=== PATIENT | female | born 1955 | race Caucasian/White ===

== ENCOUNTER 2022-03-12 08:56 | Outpatient (CLI) | payer OTHER, SELFPAY ==
[2022-03-12 11:04] LABS: Creatinine Urine 148.5 mg/dL
[2022-03-12 11:07] LABS: Microalbumin Creatinine Ratio 20 mg/g (0-30); Microalbumin Urine 3 mg/dL
[2022-03-12 11:13] LABS: Albumin* 4.2 g/dL (3.3-5.0); Chloride* 101 mmol/L (96-114); Iron* 79 ug/dL (37-170); Sodium* 138 mmol/L (135-149)
[2022-03-12 11:14] LABS: Potassium* 4.6 mmol/L (3.6-5.1)
[2022-03-12 11:16] LABS: Blood Urea Nitrogen* 23 mg/dL (7-30); Carbon Dioxide* 28 mmol/L (20-32); Creatinine* 1.5 mg/dL (0.5-1.5); Estimated Glomerular Filt Rate 38 ml/min
[2022-03-12 11:17] LABS: Calcium* 9.3 mg/dL (8.4-10.6); Glucose* 160 mg/dL (60-115); Phosphorus* 4.3 mg/dL (2.5-4.5); Uric Acid* 7.2 mg/dL (2.2-8.4)
[2022-03-12 11:22] LABS: Percent Iron Saturation 25 % (20-50); Total Iron Binding Capacity 313 ug/dL (265-497)
[2022-03-12 11:48] LABS: Ferritin* 20.2 ng/mL (11.1-264.0)
== END 2022-03-12 08:57 | disposition home or self-care (01) ==
PROVIDERS: PCP Family Medicine; Visit Provider Internal Medicine Nephrology
DX: E11.22 Type 2 diabetes mellitus with diabetic chronic kidney disease (principal); I12.9 Hypertensive chronic kidney disease with stage 1 through stage 4 chronic kidney disease, or unspecified chronic kidney disease
CPT/HCPCS: 80069; 82043; 82310; 82570; 82728; 83540; 83550; 83970; 84550; 87086; 87186

== ENCOUNTER 2022-09-05 07:25 | Outpatient (CLI) | payer OTHER, SELFPAY | END 2022-09-05 07:26 | disposition home or self-care (01) | LOC: NFLDREF 09-12 12:27 | PROVIDERS: PCP Physician Assistant Medical; Referring Provider Physician Assistant Medical; Visit Provider Internal Medicine Nephrology | DX: N18.9 Chronic kidney disease, unspecified (principal); E11.9 Type 2 diabetes mellitus without complications; I10 Essential (primary) hypertension; E78.5 Hyperlipidemia, unspecified | CPT/HCPCS: 80069; 82043; 82310; 82570; 82728; 83540; 83550; 83970; 84550; 87086; 87186 ==

== ENCOUNTER 2023-01-18 15:06 | Inpatient (IN) | payer MEDICARE, SELFPAY ==
[2023-01-18] VITALS (43 sets, daily range): BP systolic 94–158; BP diastolic 66–127; PULSE 71–136; RESP 16–20; TEMP 36.3–36.4; O2SAT 89–100; BMI 37.4; BMI 44.8
--- NOTE | 2023-01-18 15:11 | CRLHL7_ITS ---
For Patients: As a result of the Cures Act, medical imaging exams and procedure reports are released immediately into your electronic medical record. You may view this report before your referring provider. If you have questions, please contact your health care provider. INDICATION: Status post fall with pain. COMPARISON: None available. FINDINGS: The left hip was examined with AP and frogleg lateral views. An AP view of the pelvis is obtained for a total of three views. The components of bilateral total hip prostheses are in anatomic alignment with no sign of fracture, loosening, or dislocation. There is no sign of fracture of the apache osseous structures. There is mild sclerosis of the right sacroiliac joint from mild primary osteoarthritis. The left sacroiliac joint and pubic symphysis are normal in appearance. The rest of the bony pelvis and soft tissues are normal in appearance. IMPRESSION: No sign of acute osseous injury. Satisfactory appearance of bilateral total hip prostheses. 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 Dictated by Yohan Gruber MD @ 01/18/2023 5:23:28 PM (Electronically Signed)
--- NOTE | 2023-01-18 15:11 | CRLHL7_ITS ---
For Patients: As a result of the Cures Act, medical imaging exams and procedure reports are released immediately into your electronic medical record. You may view this report before your referring provider. If you have questions, please contact your health care provider. INDICATION: Fall, left shoulder pain TECHNIQUE: None. COMPARISON: X-ray left shoulder, three views FINDINGS: Moderate degenerative changes of the glenohumeral and acromioclavicular joints. Negative for acute fracture or dislocation. Overlying soft tissues unremarkable. Visualized portion of the lung is clear. IMPRESSION: Negative for acute fracture. Dictated by Josephine Welsh MD @ 01/18/2023 5:20:21 PM Dictated by: Josephine Welsh MD @ 01/18/2023 17:20:38 (Electronically Signed)
--- NOTE | 2023-01-18 15:11 | CRLHL7_ITS ---
For Patients: As a result of the Cures Act, medical imaging exams and procedure reports are released immediately into your electronic medical record. You may view this report before your referring provider. If you have questions, please contact your health care provider. INDICATION: Elbow pain after fall. COMPARISON: None available. FINDINGS: The left elbow is examined with AP, lateral, and oblique views. There is no sign of fracture, dislocation, or joint effusion. The soft tissues are normal in appearance without sign of radio-opaque foreign body. No degenerative disease is seen. IMPRESSION: Normal left elbow. Dictated by Yohan Gruber MD @ 01/18/2023 5:24:21 PM (Electronically Signed)
--- NOTE | 2023-01-18 15:11 | CRLHL7_ITS ---
For Patients: As a result of the Cures Act, medical imaging exams and procedure reports are released immediately into your electronic medical record. You may view this report before your referring provider. If you have questions, please contact your health care provider. INDICATION: Fall, pain INDICATION: Pain after fall. TECHNIQUE: Left knee, three views. COMPARISON: None FINDINGS: Bones: Alignment is normal. No fractures or bone lesions. Joint spaces: Degenerative arthrosis, primarily at the patellofemoral joint and medial compartment. Soft tissues: Unremarkable. IMPRESSION: There is no acute fracture or malalignment. Dictated by Salazar Rico MD @ 01/18/2023 5:16:58 PM Dictated by: Salazar Rico MD @ 01/18/2023 17:17:03 (Electronically Signed)
--- NOTE | 2023-01-18 15:11 | CRLHL7_ITS ---
For Patients: As a result of the Century Cures Act, medical imaging exams and procedure reports are released immediately into your electronic medical record. You may view this report before your referring provider. If you have questions, please contact your health care provider. Indication Fall. TECHNIQUE: Noncontrast CT images acquired through the brain. COMPARISON: None. FINDINGS: Motion artifact degrades image quality. Mild diffuse cerebral volume loss. No mass effect or midline shift. The hinton-white differentiation is maintained. No acute intracranial hemorrhage or pathologic extra-axial fluid collection. Patchy hypoattenuation in the supratentorial white matter, suggestive of mild chronic microvascular ischemic changes. Intracranial atherosclerotic calcifications. Left parietal subgaleal hematoma. No calvarial fracture. Hyperostosis frontalis interna. The paranasal sinuses and mastoid air cells are clear. IMPRESSION: 1. No acute intracranial hemorrhage or mass effect. 2. Left parietal subgaleal hematoma. No calvarial fracture. Please note that all CT scans at this facility use dose modulation, iterative reconstruction, and/or weight-based dosing when appropriate to reduce radiation dose to as low as reasonably achievable. Dictated by Zaid Lofton MD @ 01/18/2023 4:31:35 PM (Electronically Signed)
--- NOTE | 2023-01-18 15:11 | CRLHL7_ITS ---
For Patients: As a result of the Century Cures Act, medical imaging exams and procedure reports are released immediately into your electronic medical record. You may view this report before your referring provider. If you have questions, please contact your health care provider. INDICATION: Fall. TECHNIQUE: Noncontrast CT images acquired through the cervical spine. COMPARISON: None. FINDINGS: The cervical lordosis is maintained. Mild rightward cervical curvature. Vertebral body heights preserved. No acute fracture or traumatic subluxation. Degenerative changes of the atlantodental articulation. Mild retrolisthesis of C5 on C6 and C6 on C7. Multilevel posterior disc osteophyte complexes contribute up to moderate spinal canal narrowing at C2-3 and C5-6. Multilevel uncinate spurring and facet arthropathy contributing up to moderately severe neural foraminal stenosis on the right at C5-6 and left at C6-7. Mixed attenuation lesion expanding the left thyroid lobe measuring at least 2.1 cm. IMPRESSION: 1. No acute fracture or traumatic subluxation. 2. Multilevel cervical spondylosis. 3. Mixed attenuation lesion expanding the left thyroid lobe. Thyroid ultrasound would be recommended for further evaluation on a nonemergent basis. Please note that all CT scans at this facility use dose modulation, iterative reconstruction, and/or weight-based dosing when appropriate to reduce radiation dose to as low as reasonably achievable. Dictated by Zaid Lofton MD @ 01/18/2023 4:37:14 PM (Electronically Signed)
[2023-01-18] MEDS: MORPHINE 4 MG/ML INJ IVP (16:00)
--- NOTE | 2023-01-18 16:04 | ED.NURSE ---
Per imaging dept, Pt unable to hold still d/t pain on imaging table. MD informed. Received order for morphine 4mg IVP. #20G IV established in R AC, blood word drawn and sent to lab. Med given as ordered.
[2023-01-18 16:07] LABS: Basophils Absolute Auto 0.03 K/uL (0.00-0.30); Basophils Percent Auto 0.4 % (0.0-3.0); Eosinophils Absolute Auto 0.16 K/uL (0.00-0.50); Eosinophils Percent Auto 1.9 % (0.0-7.0); Hematocrit 36.7 % (33.0-51.0); Hemoglobin* 11.7 gm/dL (12.0-16.0); Immature Granulocytes Abs Auto 0.06 K/uL (0.00-0.30); Immature Granulocytes Pct Auto 0.7 %; Lymphocytes Percent Auto 18.8 % (20-44); Mean Corpuscular HGB Conc 32 gm/dL (32-36); Mean Corpuscular Hemoglobin 29 pg (26-34); Mean Corpuscular Volume 91 fL (80-100); Neutrophils Percent Auto 71.2 % (42.0-72.0); Platelet Count* 302 K/uL (140-440); RDW Coefficient of Variation % 13.7 % (11.5-15.5); Red Blood Count 4.02 m/uL (4.00-5.20); White Blood Count* 8.56 K/uL (4.50-11.00)
[2023-01-18 16:19] LABS: Slide Review Reflex No
[2023-01-18 16:21] LABS: Albumin* 4.3 g/dL (3.3-5.0); Chloride* 98 mmol/L (96-114); Potassium* 4.2 mmol/L (3.6-5.1); Sodium* 137 mmol/L (135-149)
[2023-01-18 16:24] LABS: Alanine Aminotransferase* 20 U/L (4-35); Alkaline Phosphatase* 73 U/L (40-150); Aspartate Amino Transferase* 24 U/L (12-35); Bilirubin Total* 0.5 mg/dL (0.1-1.5); Blood Urea Nitrogen* 22 mg/dL (7-30); Carbon Dioxide* 29 mmol/L (20-32); Creatinine* 1.3 mg/dL (0.5-1.5); Est. Creatinine Clearance* 38.77; Estimated Glomerular Filt Rate 45 ml/min; Glucose* 208 mg/dL (60-115); Total Protein* 7.9 g/dL (6.0-8.3)
[2023-01-18 16:25] LABS: Calcium* 9.3 mg/dL (8.4-10.6)
--- NOTE | 2023-01-18 16:27 | ED_ITS ---
HPI - General Adult General Chief complaint: Fall/Minor Trauma Stated complaint: Fall Time Seen by Provider: 01/18/23 15:06 Source: patient Mode of arrival: EMS Limitations: no limitations History of Present Illness HPI narrative: Patient is a 67-year-old female with a history of diabetes, chronic kidney disease, hypertension presenting to the emergency department after a fall. She states while she was going to characterize she slipped on the step falling to the ground. She is not sure if she lost consciousness. She does state duration she thinks she might have his recurrence she is adamant she went outside to the garage around 11:00 and is only held there for about an hour but over 3 hours had passed. She was calling out to her but she states he was in the room on the left side of the halls and was unable to hear her initially when she was calling out for him. She states she was requiring his help to get up after this fall. States he has issues able to get up on her own but she she was having his shoulder and knee pain from the fall. She is not sure if she hit her head. She is not on any blood thinners. Denies numbness, weakness, headache, vision changes, chest pain, shortness of breath, abdominal pain. Related Data Home Medications Medication Instructions Recorded Confirmed acetaminophen 500 mg tablet 500 mg PO PRN 02/19/22 09/10/22 atorvastatin 20 mg tablet 20 mg PO .Bedtime 02/19/22 09/10/22 cholecalciferol (vitamin D3) 25 1,000 unit PO QDAY 02/19/22 09/10/22 mcg (1,000 unit) capsule gabapentin 300 mg capsule 300 mg PO BID 02/19/22 09/10/22 lisinopril 20 mg tablet 20 mg PO DAILY 02/19/22 09/10/22 metformin 500 mg tablet,extended 1,000 mg PO 02/19/22 09/10/22 release 24 hr naproxen 500 mg tablet 500 mg PO BID 02/19/22 09/10/22 aspirin 81 mg tablet,delayed 81 mg PO DAILY PRN 09/10/22 09/10/22 release Previous Rx's Medication Instructions Recorded ofloxacin 0.3 % eye drops See Rx Instructions ophthalmic 06/18/22 (eye) .COMPLEX #5 mL Allergies Allergy/AdvReac Type Severity Reaction Status Date / Time fexofenadine AdvReac Intermediate Headache Verified 09/10/22 08:33 loratadine AdvReac Intermediate Headache Verified 09/10/22 08:33 Sulfa (Sulfonamide AdvReac Gastrointestinal Verified 01/16/23 15:20 Antibiotics) Upset Review of Systems Status of ROS: Reports: 10 or more systems reviewed and unremarkable except as noted in History and below PFSH PFSH Medical History (Updated 01/18/23 @ 22:03 by Zachery Magana DO) Anemia in chronic kidney disease (CKD) ?N18.9 - Chronic kidney disease, unspecified (ICD-10) ?D63.1 - Anemia in chronic kidney disease (ICD-10) Hyperparathyroidism, secondary renal ?N25.81 - Secondary hyperparathyroidism of renal origin (ICD-10) Obesity (BMI 30-39.9) ?E66.9 - Obesity, unspecified (ICD-10) Thumb pain ?M79.646 - Pain in unspecified finger(s) (ICD-10) Conjunctivitis ?H10.9 - Unspecified conjunctivitis (ICD-10) Bronchitis ?J40 - Bronchitis, not specified as acute or chronic (ICD-10) Osteoarthritis ?M19.90 - Unspecified osteoarthritis, unspecified site (ICD-10) Hypertension ?I10 - Essential (primary) hypertension (ICD-10) Hyperlipidemia ?E78.5 - Hyperlipidemia, unspecified (ICD-10) Diabetic polyneuropathy ?E11.42 - Type 2 diabetes mellitus with diabetic polyneuropathy (ICD-10) Diabetes mellitus ?E11.9 - Type 2 diabetes mellitus without complications (ICD-10) Chronic right shoulder pain ?M25.511 - Pain in right shoulder (ICD-10) ?G89.29 - Other chronic pain (ICD-10) Chronic kidney disease ?N18.9 - Chronic kidney disease, unspecified (ICD-10) Chronic back pain ?M54.9 - Dorsalgia, unspecified (ICD-10) ?G89.29 - Other chronic pain (ICD-10) Surgical History (Updated 01/18/23 @ 21:54 by Anthony Garcia MD) History of thumb surgery ?Z98.890 - Other specified postprocedural states (ICD-10) 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) ?Z98.890 - Other specified postprocedural states (ICD-10) History of total right hip replacement (2004) ?Z96.641 - Presence of right artificial hip joint (ICD-10) History of total left hip replacement (2002) ?Z96.642 - Presence of left artificial hip joint (ICD-10) History of shoulder surgery (2008) ?Z98.890 - Other specified postprocedural states (ICD-10) History of pituitary surgery (~1995) ?Z98.890 - Other specified postprocedural states (ICD-10) History of hysterectomy ?Z90.710 - Acquired absence of both cervix and uterus (ICD-10) Family History (Updated 02/18/22 @ 11:44 by Anastasia Coleman) Mother Breast cancer Maternal Grandmother Diabetes Social History (Updated 02/18/22 @ 11:44 by Anastasia Coleman) Narrative: Does not drink alcohol Does not use illicit drugs Nonsmoker Smoking Status: Former smoker How often do you have a drink containing alcohol: never AUDIT-C Alcohol total score: 0 Non-prescribed substance use: denies use Exam Narrative: Exam Narrative: Const: Well-nourished, Well-developed, in mild distress Eyes: PERRL, no conjunctival injection, and symmetrical lids ENMT: Atraumatic external nose and ears. Moist mucous membranes. Neck: Symmetric, trachea midline, No thyromegaly. CVS: RRR, No murmurs or gallops. Peripheral pulses 2+ and equal in all extremities RESP: Unlabored respiratory effort. Clear to auscultation bilaterally. GI: Nontender/Nondistended, No rebound or guarding. MSK:Extremities w/o deformity, pain to palpation noted left shoulder, elbow, hip, and knee. No midline spinal tenderness Skin: Warm, Dry. No rashes or lesions. Neuro: Normal Muscle tone, No focal neurological deficits. Psych: Awake, Alert, & Oriented x3. Appropriate mood and affect. Const: Vital Signs, click to edit/add: Vital Signs - 24 hr 01/18/23 15:10 01/18/23 15:10 01/18/23 15:18 Temperature 97.3 F L Pulse Rate 82 Pulse Rate [Pulse Oximeter] 76 Respiratory Rate 16 18 Blood Pressure 157/88 H Blood Pressure [Ri ght Upper Arm] 157/88 H Pulse Oximetry 98 98 97 Oxygen Delivery Me thod Room Air 01/18/23 15:22 01/18/23 15:32 01/18/23 15:33 Temperature Pulse Rate 71 82 85 Pulse Rate [Pulse Oximeter] Respiratory Rate 20 16 18 Blood Pressure 140/105 H 157/109 H Blood Pressure [Ri ght Upper Arm] Pulse Oximetry 98 96 94 Oxygen Delivery Me thod 01/18/23 16:33 01/18/23 16:45 01/18/23 16:52 Temperature Pulse Rate 128 H 130 H 131 H Pulse Rate [Pulse Oximeter] Respiratory Rate 20 20 18 Blood Pressure 129/108 H Blood Pressure [Ri ght Upper Arm] Pulse Oximetry 95 94 100 Oxygen Delivery Me thod 01/18/23 17:01 01/18/23 17:11 01/18/23 17:22 Temperature Pulse Rate 131 H 131 H 131 H Pulse Rate [Pulse Oximeter] Respiratory Rate 18 20 18 Blood Pressure 130/97 H 138/102 H 151/99 H Blood Pressure [Ri ght Upper Arm] Pulse Oximetry 99 94 96 Oxygen Delivery Me thod 01/18/23 17:31 01/18/23 17:32 01/18/23 17:43 Temperature Pulse Rate 135 H 133 H 133 H Pulse Rate [Pulse Oximeter] Respiratory Rate 16 18 Blood Pressure 110/98 H 120/101 H Blood Pressure [Ri ght Upper Arm] Pulse Oximetry 95 95 95 Oxygen Delivery Me thod 01/18/23 17:53 01/18/23 18:00 01/18/23 18:01 Temperature Pulse Rate 134 H 131 H 132 H Pulse Rate [Pulse Oximeter] Respiratory Rate 16 Blood Pressure 158/95 H 157/108 H Blood Pressure [Ri ght Upper Arm] Pulse Oximetry 95 95 95 Oxygen Delivery Me thod 01/18/23 18:11 01/18/23 18:21 01/18/23 18:35 Temperature Pulse Rate 134 H 133 H 126 H Pulse Rate [Pulse Oximeter] Respiratory Rate Blood Pressure 145/127 H 144/104 H Blood Pressure [Ri ght Upper Arm] Pulse Oximetry 96 97 95 Oxygen Delivery Me thod 01/18/23 18:36 01/18/23 18:41 01/18/23 18:45 Temperature Pulse Rate 124 H 113 H 120 H Pulse Rate [Pulse Oximeter] Respiratory Rate Blood Pressure 139/99 H 103/85 Blood Pressure [Ri ght Upper Arm] Pulse Oximetry 97 96 96 Oxygen Delivery Me thod 01/18/23 18:51 01/18/23 18:52 01/18/23 19:01 Temperature Pulse Rate 113 H 102 H 121 H Pulse Rate [Pulse Oximeter] Respiratory Rate Blood Pressure 102/89 94/68 Blood Pressure [Ri ght Upper Arm] Pulse Oximetry 95 96 Oxygen Delivery Me thod 01/18/23 19:13 01/18/23 19:31 01/18/23 20:01 Temperature Pulse Rate 126 H 128 H 121 H Pulse Rate [Pulse Oximeter] Respiratory Rate Blood Pressure 104/83 114/81 109/66 Blood Pressure [Ri ght Upper Arm] Pulse Oximetry Oxygen Delivery Me thod 01/18/23 20:41 01/18/23 20:45 01/18/23 20:49 Temperature Pulse Rate 120 H 127 H 116 H Pulse Rate [Pulse Oximeter] Respiratory Rate Blood Pressure 126/101 H Blood Pressure [Ri ght Upper Arm] Pulse Oximetry 95 93 94 Oxygen Delivery Me thod 01/18/23 21:00 01/18/23 21:02 01/18/23 21:15 Temperature Pulse Rate 118 H 136 H Pulse Rate [Pulse Oximeter] Respiratory Rate Blood Pressure 139/77 Blood Pressure [Ri ght Upper Arm] Pulse Oximetry 99 89 Oxygen Delivery Me thod 01/18/23 21:30 01/18/23 21:32 01/18/23 21:45 Temperature Pulse Rate 118 H 120 H Pulse Rate [Pulse Oximeter] Respiratory Rate Blood Pressure 103/83 Blood Pressure [Ri ght Upper Arm] Pulse Oximetry 96 95 Oxygen Delivery Me thod 01/18/23 22:01 01/18/23 22:03 01/18/23 22:15 Temperature Pulse Rate 108 H 120 H Pulse Rate [Pulse Oximeter] Respiratory Rate Blood Pressure 107/66 Blood Pressure [Ri ght Upper Arm] Pulse Oximetry 92 91 Oxygen Delivery Me thod 01/18/23 22:23 Temperature Pulse Rate Pulse Rate [Pulse Oximeter] 125 H Respiratory Rate 20 Blood Pressure Blood Pressure [Ri ght Upper Arm] 107/66 Pulse Oximetry Oxygen Delivery Me thod Course Vital Signs Vital signs: Initial Vital Signs Temperature 97.3 F L 01/18/23 15:10 Temperature Source Temporal Artery Scan 01/18/23 15:10 Pulse Rate 76 01/18/23 15:10 Pulse Rhythm Regular 01/18/23 15:10 Respiratory Rate 16 01/18/23 15:10 Blood Pressure 157/88 H 01/18/23 15:10 Blood Pressure Mean 111 H 01/18/23 15:10 Blood Pressure Position Supine 01/18/23 15:10 Pulse Oximetry 98 01/18/23 15:10 Oxygen Delivery Method Room Air 01/18/23 15:10 Vital Signs Temperature 97.3 F L 01/18/23 15:10 Pulse Rate 76 01/18/23 15:10 Respiratory Rate 16 01/18/23 15:10 Blood Pressure 157/88 H 01/18/23 15:10 Pulse Oximetry 98 01/18/23 15:10 Oxygen Delivery Method Room Air 01/18/23 15:10 Temperature 97.3 F L 01/18/23 15:10 Pulse Rate 125 H 01/18/23 22:23 Respiratory Rate 20 01/18/23 22:23 Blood Pressure 107/66 01/18/23 22:23 Pulse Oximetry 91 01/18/23 22:15 Oxygen Delivery Method Room Air 01/18/23 15:10 Medical Decision Making [facility] Narrative Medical decision making narrative: Patient is 67-year-old female presenting emergency department after a fall at home. She slipped on the steps and fell. She is unsure if she had any loss of consciousness. She thought she was only on the ground for 1 hour but in reality was at least 3 hours. Her is in the room with her known states she is acting normally. She is complaining of pain to her left arm and leg. Saw having any neck pain. Denies having a headache. She is unsure if she hit her head. X-rays of the left knee, hip, elbow, shoulder are all ordered. Also CT scan of the head and cervical spine. Patient was given morphine for her pain. CBC and CMP were ordered along with a troponin. Patient's lab work returned showing no concerning abnormalities. Of the patient's imaging returned showing no concerning abnormalities. Before she went to CT scan she did receive her morphine. When she returned from CT scan her heart rate went from the 70s to 130s. Percy is clear why this occurred. We tried giving her 1 L of normal saline, Ativan, 2 doses of Lopressor. After this her blood pressure did come down but her heart rate is still tachycardic. Chest x-ray and urinalysis were ordered. Patient did have episodes where she looked like she was in SVT so we did try adenosine. Initial 6 mg tonight were going to try 12 mg. 12. Mg was given she did slow down from could see the patient is now in a flutter. Patient was started on a Cardizem drip. She was admitted to the hospitalist service Initial EKG showed sinus rhythm with premature atrial complexes, rate of 70 beats per minute, normal intervals, normal axis, no ST or T-wave abnormalities. This was done at 15:24. Repeat EKG showed sinus tachycardia at 132 beats per minute with nonspecific ST abnormalities. I do appear to see P waves and not believe this EKG at 17:45 was SVT. Lab Data Labs: Lab Results 01/18/23 01/18/23 Range/Units 16:00 18:50 WBC 8.56 (4.50-11.00) K/uL RBC 4.02 (4.00-5.20) m/uL Hgb 11.7 L (12.0-16.0) gm/dL Hct 36.7 (33.0-51.0) % MCV 91 (80-100) fL MCH 29 (26-34) pg MCHC 32 (32-36) gm/dL RDW Coeff of Brittni 13.7 (11.5-15.5) % Plt Count 302 (140-440) K/uL Neut % (Auto) 71.2 (42.0-72.0) % Lymph % (Auto) 18.8 L (20-44) % [place] % (Auto) 7.0 (0.0-11.0) % Eos % (Auto) 1.9 (0.0-7.0) % Baso % (Auto) 0.4 (0.0-3.0) % Neut # (Auto) 6.10 (1.7-7.0) K/uL Lymph # (Auto) 1.60 (0.90-2.90) K/uL [place] # (Auto) 0.60 (0.00-0.90) K/UL Eos # (Auto) 0.16 (0.00-0.50) K/uL Baso # (Auto) 0.03 (0.00-0.30) K/uL Abs Immat Gran (auto) 0.06 (0.00-0.30) K/uL Imm/Tot Granulo (auto) 0.7 % Sodium 137 (135-149) mmol/L Potassium 4.2 (3.6-5.1) mmol/L Chloride 98 (96-114) mmol/L Carbon Dioxide 29 (20-32) mmol/L BUN 22 (7-30) mg/dL Creatinine 1.3 (0.5-1.5) mg/dL Estimated Creat Clear 38.77 Estimated GFR 45 ml/min Glucose 208 H (60-115) mg/dL Calcium 9.3 (8.4-10.6) mg/dL Total Bilirubin 0.5 (0.1-1.5) mg/dL AST 24 (12-35) U/L ALT 20 (4-35) U/L Alkaline Phosphatase 73 (40-150) U/L Total Creatine Kinase 78 (41-117) U/L Troponin I < 0.01 L < 0.01 L (0.01-0.04) ng/mL Total Protein 7.9 (6.0-8.3) g/dL Albumin 4.3 (3.3-5.0) g/dL Lab Acknowledgement Test Added Discharge Plan Discharge Clinical Impression: Atrial flutter Qualifiers: Atrial flutter type: unspecified Qualified Code(s): I48.92 - Unspecified atrial flutter Closed head injury Qualifiers: Encounter type: initial encounter Qualified Code(s): S09.90XA - Unspecified injury of head, initial encounter Fall Qualifiers: Encounter type: initial encounter Qualified Code(s): W19.XXXA - Unspecified fall, initial encounter Patient Disposition: Admitted As Inpatient Condition: Stable
[2023-01-18 16:35] LABS: Creatine Kinase* 78 U/L (41-117)
[2023-01-18 16:41] LABS: Troponin I* < 0.01 ng/mL (0.01-0.04)
--- NOTE | 2023-01-18 16:55 | ED.NURSE ---
C-collar removed, okay with .
[2023-01-18] MEDS: METOPROLOL TARTRATE 1 MG/ML inj 5 MG IVP ×2 (18:23→18:54)
--- NOTE | 2023-01-18 18:38 | ED.NURSE ---
Metoprolol given as ordered for elevated HR. HR noted down to 110s-120s. Pt reports urinating the bed. Pt assisted to standing, wet pants and brief removed. Clean brief in place. Linens replaced. HOB positioned for comfort. Denies additional needs at this time. Call light within reach.
[2023-01-18] MEDS: LACTATED RINGERS 1000 ML 1,000 ML IV (19:25)
[2023-01-18] MEDS: LORazepam 0.5 MG TABLET PO (19:27)
[2023-01-18 19:35] LABS: Troponin I* < 0.01 ng/mL (0.01-0.04)
--- NOTE | 2023-01-18 20:15 | CRLHL7_ITS ---
For Patients: As a result of the Cures Act, medical imaging exams and procedure reports are released immediately into your electronic medical record. You may view this report before your referring provider. If you have questions, please contact your health care provider. INDICATION: Tachycardia TECHNIQUE: Chest 2 views. COMPARISON: None FINDINGS: The heart is normal in size. The pulmonary vasculature is within normal limits. The lungs are clear. Postsurgical changes of the right shoulder. Moderate multilevel degenerative changes of the spine. IMPRESSION: No acute process. Dictated by Josephine Welsh MD @ 01/18/2023 9:06:03 PM Dictated by: Josephine Welsh MD @ 01/18/2023 21:06:26 (Electronically Signed)
--- NOTE | 2023-01-18 20:27 | ED.NURSE ---
Report given to BENITEZ Hale.
[2023-01-18] MEDS: ADENOSINE 6 MG/2ML INJ IVP (20:58)
[2023-01-18] MEDS: ADENOSINE 6 MG/2ML INJ 12 MG IVP (21:03)
[2023-01-18] MEDS: dilTIAZem HCL 125 MG in 0.9 % SODIUM CHLORIDE 100 ml 100 ML IVPB (21:33)
--- NOTE | 2023-01-18 22:13 | ED.NURSE ---
Nurse to nurse report given to Davina MARQUIS. Patient going to CCU#3
--- NOTE | 2023-01-18 22:36 | P.IMHP_ITS ---
Hospitalist- H&P: HPI History of Present Illness Time Seen by Provider: 22:00 Date Seen: 01/18/23 Chief complaint: Fall; atrial flutter with RVR Narrative: Naty Live is a 67 year old woman who lives in a private residence with her and presented to the emergency department today after sustaining a fall at home. She was attempting to walk out of her home into the garage when she tripped over something in the portal. This was an unwitnessed fall. She does not believe she lost consciousness but is not certain. She believes she was laying on garage floor for 3 or possibly 4 hours. She was calling out to her in the house but he did not respond until 3-4 hours later. Notes residual pain on the left posterior aspect of her head, left shoulder pain, knee pain. Patient underwent multiple radiographic studies, including CT scan of the head, CT scan of the C-spine, left elbow x-ray, pelvis and hip x-rays, left knee x-ray, left shoulder x-ray, and chest x-ray. None of these studies demonstrated any acute fractures. CT of head demonstrated no intracranial bleed or other intracranial abnormalities, but did demonstrate a left parietal hematoma in the area of her head discomfort. Noteworthy is the fact that she is ordinarily not on any anticoagulants or anti thrombotic agents. When patient 1st arrived in the emergency department vital signs were stable. Noted to have normal sinus rhythm. When patient returned from x-ray studies, heart rate was suddenly 130-140 beats per minute. Patient was asymptomatic with this. She was presumed to have a sinus tachycardia based on initial assessment. She was treated with lorazepam without resolution, IV metoprolol without resolution. Subsequently I assessed the patient and determined that patient was likely not in normal sinus rhythm. We administered adenosine 6 mg IV and the heart rate slowed down briefly to 90 beats per minute and then once again was around 130 beats per minute. Subsequently we administered adenosine 12 mg IV and the heart rate slowed down sufficiently that we could see distinct saw tooth pattern flutter waves indicating underlying atrial flutter. Subsequently heart rate return to roughly 130 beats per minute. We determined to admit the patient to the hospital to address the atrial flutter with RVR and monitor her status post closed head injury. Patient agreeable. Review of Systems Status of ROS: Reports: 10 or more systems reviewed and unremarkable except as noted in History and below Narrative: Denies angina or anginal equivalent, syncope or near syncope, nausea or vomiting, palpitations or chest fluttering, cough or dyspnea, paroxysmal nocturnal dyspnea or orthopnea, diaphoresis, dependent edema. States blood sugars are generally well controlled at home. Does have diabetes. Does not take insulin. Takes metformin only. Ordinarily does have difficulty with her gait. Does not usually fall. Has not had any other falls in the last 3-6 months. Designates her , Scott Live, as her power of prosecuting attorney for health should that be required. Requests full resuscitation in the event of cardiopulmonary demise. [facility] Medical History (Updated 01/18/23 @ 23:16 by Anthony Garcia MD) Anemia in chronic kidney disease (CKD) ?N18.9 - Chronic kidney disease, unspecified (ICD-10) ?D63.1 - Anemia in chronic kidney disease (ICD-10) Hyperparathyroidism, secondary renal ?N25.81 - Secondary hyperparathyroidism of renal origin (ICD-10) Obesity (BMI 30-39.9) ?E66.9 - Obesity, unspecified (ICD-10) Thumb pain ?M79.646 - Pain in unspecified finger(s) (ICD-10) Conjunctivitis ?H10.9 - Unspecified conjunctivitis (ICD-10) Bronchitis ?J40 - Bronchitis, not specified as acute or chronic (ICD-10) Osteoarthritis ?M19.90 - Unspecified osteoarthritis, unspecified site (ICD-10) Hypertension ?I10 - Essential (primary) hypertension (ICD-10) Hyperlipidemia ?E78.5 - Hyperlipidemia, unspecified (ICD-10) Diabetic polyneuropathy ?E11.42 - Type 2 diabetes mellitus with diabetic polyneuropathy (ICD-10) Diabetes mellitus ?E11.9 - Type 2 diabetes mellitus without complications (ICD-10) Chronic right shoulder pain ?M25.511 - Pain in right shoulder (ICD-10) ?G89.29 - Other chronic pain (ICD-10) Chronic kidney disease ?N18.9 - Chronic kidney disease, unspecified (ICD-10) Chronic back pain ?M54.9 - Dorsalgia, unspecified (ICD-10) ?G89.29 - Other chronic pain (ICD-10) Surgical History History of thumb surgery ?Z98.890 - Other specified postprocedural states (ICD-10) 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) ?Z98.890 - Other specified postprocedural states (ICD-10) History of total right hip replacement (2004) ?Z96.641 - Presence of right artificial hip joint (ICD-10) History of total left hip replacement (2002) ?Z96.642 - Presence of left artificial hip joint (ICD-10) History of shoulder surgery (2008) ?Z98.890 - Other specified postprocedural states (ICD-10) History of pituitary surgery (~1995) ?Z98.890 - Other specified postprocedural states (ICD-10) History of hysterectomy ?Z90.710 - Acquired absence of both cervix and uterus (ICD-10) Family History Mother Breast cancer Maternal Grandmother Diabetes Social History Narrative: Does not drink alcohol Does not use illicit drugs Nonsmoker Smoking Status: Former smoker How often do you have a drink containing alcohol: never AUDIT-C Alcohol total score: 0 Non-prescribed substance use: denies use Meds Home Medications and Allergies Home Medications Medication Instructions Recorded Confirmed Type acetaminophen 500 mg tablet 500 mg PO PRN 02/19/22 09/10/22 History atorvastatin 20 mg tablet 20 mg PO .Bedtime 02/19/22 09/10/22 History cholecalciferol (vitamin D3) 25 1,000 unit PO QDAY 02/19/22 09/10/22 History mcg (1,000 unit) capsule gabapentin 300 mg capsule 300 mg PO BID 02/19/22 09/10/22 History lisinopril 20 mg tablet 20 mg PO DAILY 02/19/22 09/10/22 History metformin 500 mg tablet,extended 1,000 mg PO 02/19/22 09/10/22 History release 24 hr naproxen 500 mg tablet 500 mg PO BID 02/19/22 09/10/22 History aspirin 81 mg tablet,delayed 81 mg PO DAILY PRN 09/10/22 09/10/22 History release Allergies Allergy/AdvReac Type Severity Reaction Status Date / Time fexofenadine AdvReac Intermediate Headache Verified 09/10/22 08:33 loratadine AdvReac Intermediate Headache Verified 09/10/22 08:33 Sulfa (Sulfonamide AdvReac Gastrointestinal Verified 01/16/23 15:20 Antibiotics) Upset Exam Narrative: Exam Narrative: I examined the patient the emergency department. She appears comfortable and in no acute distress. Obese. Vision and hearing are grossly normal. Alert and oriented to self, place, time, situation. Articulate, cooperative. Mood and affect are congruent. Small hematoma left parietal region of scalp, moderately tender to touch. No lacerations. No abrasions. Normal external auditory canals and tympanic membranes. Midline nasal septum. Dentition in fair repair. Moist buccal mucosa. Pupils equally round and reactive to light and accommodation. Extraocular muscles are intact. No icterus. No conjunctival injection. Neck is supple. No JVD or hepatojugular reflux. No carotid bruits. No head and neck lymphadenopathy. Lungs are clear to auscultation. No wheezing, rhonchi, or rales. Chest wall excursions are full. No CVA tenderness or tenderness to palpation over the spine. Heart tones are tachycardic without murmur, gallop, or rub. PMI not laterally displaced. Abdomen with active bowel sounds, soft, nontender. No rebound or guarding. No organomegaly or masses. She has antalgia with attempted range of motion of both shoulders. Can move both elbows wrists and all fingers. Range of motion of hips, knees, ankles, toes are intact. Extremities without edema. Palpable pulses upper and lower extremities. Moves all 4 extremities. No focal motor neurologic deficits. Skin is dry and intact. Const: Vital Signs, click to edit/add: Vital Signs - 24 hr 01/18/23 15:10 01/18/23 15:10 01/18/23 15:18 Temperature 97.3 F L Pulse Rate 82 Pulse Rate [Pulse Oximeter] 76 Respiratory Rate 16 18 Blood Pressure 157/88 H Blood Pressure [Ri ght Upper Arm] 157/88 H Pulse Oximetry 98 98 97 Oxygen Delivery Me thod Room Air 01/18/23 15:22 01/18/23 15:32 01/18/23 15:33 Temperature Pulse Rate 71 82 85 Pulse Rate [Pulse Oximeter] Respiratory Rate 20 16 18 Blood Pressure 140/105 H 157/109 H Blood Pressure [Ri ght Upper Arm] Pulse Oximetry 98 96 94 Oxygen Delivery Me thod 01/18/23 16:33 01/18/23 16:45 01/18/23 16:52 Temperature Pulse Rate 128 H 130 H 131 H Pulse Rate [Pulse Oximeter] Respiratory Rate 20 20 18 Blood Pressure 129/108 H Blood Pressure [Ri ght Upper Arm] Pulse Oximetry 95 94 100 Oxygen Delivery Me thod 01/18/23 17:01 01/18/23 17:11 01/18/23 17:22 Temperature Pulse Rate 131 H 131 H 131 H Pulse Rate [Pulse Oximeter] Respiratory Rate 18 20 18 Blood Pressure 130/97 H 138/102 H 151/99 H Blood Pressure [Ri ght Upper Arm] Pulse Oximetry 99 94 96 Oxygen Delivery Me thod 01/18/23 17:31 01/18/23 17:32 01/18/23 17:43 Temperature Pulse Rate 135 H 133 H 133 H Pulse Rate [Pulse Oximeter] Respiratory Rate 16 18 Blood Pressure 110/98 H 120/101 H Blood Pressure [Ri ght Upper Arm] Pulse Oximetry 95 95 95 Oxygen Delivery Me thod 01/18/23 17:53 01/18/23 18:00 01/18/23 18:01 Temperature Pulse Rate 134 H 131 H 132 H Pulse Rate [Pulse Oximeter] Respiratory Rate 16 Blood Pressure 158/95 H 157/108 H Blood Pressure [Ri ght Upper Arm] Pulse Oximetry 95 95 95 Oxygen Delivery Me thod 01/18/23 18:11 01/18/23 18:21 01/18/23 18:35 Temperature Pulse Rate 134 H 133 H 126 H Pulse Rate [Pulse Oximeter] Respiratory Rate Blood Pressure 145/127 H 144/104 H Blood Pressure [Ri ght Upper Arm] Pulse Oximetry 96 97 95 Oxygen Delivery Me thod 01/18/23 18:36 01/18/23 18:41 01/18/23 18:45 Temperature Pulse Rate 124 H 113 H 120 H Pulse Rate [Pulse Oximeter] Respiratory Rate Blood Pressure 139/99 H 103/85 Blood Pressure [Ri ght Upper Arm] Pulse Oximetry 97 96 96 Oxygen Delivery Me thod 01/18/23 18:51 01/18/23 18:52 01/18/23 19:01 Temperature Pulse Rate 113 H 102 H 121 H Pulse Rate [Pulse Oximeter] Respiratory Rate Blood Pressure 102/89 94/68 Blood Pressure [Ri ght Upper Arm] Pulse Oximetry 95 96 Oxygen Delivery Me thod 01/18/23 19:13 01/18/23 19:31 01/18/23 20:01 Temperature Pulse Rate 126 H 128 H 121 H Pulse Rate [Pulse Oximeter] Respiratory Rate Blood Pressure 104/83 114/81 109/66 Blood Pressure [Ri ght Upper Arm] Pulse Oximetry Oxygen Delivery Sd thod 01/18/23 20:41 01/18/23 20:45 01/18/23 20:49 Temperature Pulse Rate 120 H 127 H 116 H Pulse Rate [Pulse Oximeter] Respiratory Rate Blood Pressure 126/101 H Blood Pressure [Ri ght Upper Arm] Pulse Oximetry 95 93 94 Oxygen Delivery Sd thod 01/18/23 21:00 01/18/23 21:02 01/18/23 21:15 Temperature Pulse Rate 118 H 136 H Pulse Rate [Pulse Oximeter] Respiratory Rate Blood Pressure 139/77 Blood Pressure [Ri ght Upper Arm] Pulse Oximetry 99 89 Oxygen Delivery Sd thod 01/18/23 21:30 01/18/23 21:32 01/18/23 21:45 Temperature Pulse Rate 118 H 120 H Pulse Rate [Pulse Oximeter] Respiratory Rate Blood Pressure 103/83 Blood Pressure [Ri ght Upper Arm] Pulse Oximetry 96 95 Oxygen Delivery Sd thod 01/18/23 22:01 01/18/23 22:03 01/18/23 22:15 Temperature Pulse Rate 108 H 120 H Pulse Rate [Pulse Oximeter] Respiratory Rate Blood Pressure 107/66 Blood Pressure [Ri ght Upper Arm] Pulse Oximetry 92 91 Oxygen Delivery [facility] 01/18/23 22:23 Temperature Pulse Rate Pulse Rate [Pulse Oximeter] 125 H Respiratory Rate 20 Blood Pressure Blood Pressure [Ri ght Upper Arm] 107/66 Pulse Oximetry Oxygen Delivery Me thod Documenting provider has reviewed patient's vital signs: yes Hospitalist - H&P: Result Labs Labs: Short CBC 01/18/23 Range/Units 16:00 WBC 8.56 (4.50-11.00) K/uL Hgb 11.7 L (12.0-16.0) gm/dL Hct 36.7 (33.0-51.0) % Plt Count 302 (140-440) K/uL BMP 01/18/23 16:00 Sodium 137 Potassium 4.2 Chloride 98 Carbon Dioxide 29 BUN 22 Creatinine 1.3 Glucose 208 H Calcium 9.3 Cardiac Enzymes 01/18/23 01/18/23 Range/Units 16:00 18:50 Total Creatine Kinase 78 (41-117) U/L Troponin I < 0.01 L < 0.01 L (0.01-0.04) ng/mL Liver Function 01/18/23 Range/Units 16:00 Total Bilirubin 0.5 (0.1-1.5) mg/dL AST 24 (12-35) U/L ALT 20 (4-35) U/L Alkaline Phosphatase 73 (40-150) U/L Albumin 4.3 (3.3-5.0) g/dL ECG Attestation: I personally reviewed and interpreted this ECG as follows: ECG interpretation date: 01/18/23 ECG interpretation time: 22:00 Prior ECG tracings: available for review Interpretation: Initial electrocardiogram demonstrates sinus rhythm. Subsequent electrocardiograms demonstrated tachycardia. Unclear if P waves marched out. P-wave configuration different than initial electrocardiogram. After administration of adenosine 12 mg IV, we captured flutter waves demonstrating underlying atrial flutter. Imaging CT scan - head: Attestation: I have reviewed the pertinent imaging results. Radiologist's impression: IMPRESSION: 1. No acute intracranial hemorrhage or mass effect. 2. Left parietal subgaleal hematoma. No calvarial fracture. CT scan-cervical spine: Attestation: I have reviewed the pertinent imaging results. Radiologist's impression: IMPRESSION: 1. No acute fracture or traumatic subluxation. 2. Multilevel cervical spondylosis. 3. Mixed attenuation lesion expanding the left thyroid lobe. Thyroid ultrasound would be recommended for further evaluation on a nonemergent basis. Chest x-ray: Attestation: I have reviewed the pertinent imaging results. Radiologist's impression: IMPRESSION: No acute process. [id number]: Attestation: I have reviewed the pertinent imaging results. Radiologist's impression: IMPRESSION: Negative for acute fracture. X-ray-left elbow: Attestation: I have reviewed the pertinent imaging results. Radiologist's impression: IMPRESSION: Normal left elbow. [id number] and hips: Attestation: I have reviewed the pertinent imaging results. Radiologist's impression: IMPRESSION: No sign of acute osseous injury. Satisfactory appearance of bilateral total hip prostheses. 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 X-ray-left knee: Attestation: I have reviewed the pertinent imaging results. Radiologist's impression: IMPRESSION: There is no acute fracture or malalignment. Assessment and Plan Assessment and plan (1) Atrial flutter: Problem comment: Sudden onset in the hospital, uncertain if new or paroxysmal Status: Acute (2) Closed head injury: Problem comment: Status post fall in home Status: Acute (3) Fall: Problem comment: Underlying unstable gait Status: Acute Plan 1. Reviewed impression with patient. Recommended admission to the hospital. She is agreeable. 2. Initiate efforts to attempt to rate control with IV diltiazem drip and intermittent metoprolol IV in an effort to try to maintain heart rate less than 100. 3. Consider adding amiodarone if calcium channel fatmata and beta-fatmata insufficient for rate control. Additionally consider DC cardioversion. May possibly require catheter ablation. 4. Initiate anticoagulation with enoxaparin 100 mg subcutaneously q.12 hours. 5. Telemetry. Serial troponin I measurements. Order transthoracic echocardiogram. 6. Physical therapy and occupational therapy consultation. 7. Continue with metformin for now. Monitor creatinine. Will add sliding scale insulin while in hospital. 8. Consider orthopedic surgery consultation if patient continues to have discomforts such as in her shoulders and elsewhere.
[2023-01-19] VITALS (12 sets, daily range): BP systolic 85–103; BP diastolic 52–67; PULSE 73–81; RESP 16–24; TEMP 36.4–36.8; O2SAT 93–96
[2023-01-19] MEDS: ACETAMINOPHEN 325 MG TABLET 650 MG PO (00:41)
[2023-01-19] MEDS: ENOXAPARIN 120 MG/0.8 ML INJ 100 MG SUBCUT (00:55)
[2023-01-19] MEDS: SODIUM CHLORIDE 0.9 % (FLUSH) 10 ML SYRINGE 5 ML IVF ×3 (05:00→21:16)
--- NOTE | 2023-01-19 06:36 | PC.NURSE ---
END OF SHIFT NOTE: PT PLEASANT AND COOPERATIVE. A&Ox3. DENIES CP, SOB, N/V. AMBULATES WITH WALKER, GB, A1-2. AFEBRILE. PT CONVERTED FROM AFIB/AFLUTTER TO NSR @0238. PAIN TO LEFT SHOULDER/ARM, HIP, KNEE THAT INCREASES WITH MOVEMENT. (PAIN D/T FALL AT HOME PRIOR TO ADMISSION.) BRUISE TO LEFT BUTTOCK. HEMATOMA TO BACK, LEFT SIDE OF HEAD;TENDER TO TOUCH. PT DENIES HEADACHE. LEFT ARM IS IN SLING. DILTIAZEM DRIP TITRATED FROM 5ML TO 15ML; UPON CONVERTING INTO NSR PT WAS WEENED OFF OF DRIP. BED ALARM ON AND CALL LIGHT WITHIN PT?S REACH.?
--- NOTE | 2023-01-19 06:41 | P.IMPN_ITS ---
Subjective Date Seen: 01/19/23 Interval history: Franklin [facility] Cover Note eHospitalist was contacted by nursing staff with concern of patient converted to sinus rhythm. Bedside nurse requesting addition of oral diltiazem. Bedside nurse instructed to wean patient off of diltiazem drip with follow-up BP. Follow-up BP was low with systolic blood pressure in the 90s range. Rounding provider to initiate oral diltiazem once blood pressure has improved. [facility] you [facility] This service is available for further assistance as requested by your care team by calling [phone]. Exam Const: Vital Signs, click to edit/add: Vital Signs - 24 hr 01/18/23 15:10 01/18/23 15:10 01/18/23 15:18 Temperature 97.3 F L Pulse Rate 82 Pulse Rate [Pulse Oximeter] 76 Respiratory Rate 16 18 Blood Pressure 157/88 H Blood Pressure [Le ft Arm] Blood Pressure [Ri ght Arm] Blood Pressure [Ri ght Upper Arm] 157/88 H Pulse Oximetry 98 98 97 Oxygen Delivery Me thod Room Air 01/18/23 15:22 01/18/23 15:32 01/18/23 15:33 Temperature Pulse Rate 71 82 85 Pulse Rate [Pulse Oximeter] Respiratory Rate 20 16 18 Blood Pressure 140/105 H 157/109 H Blood Pressure [Le ft Arm] Blood Pressure [Ri ght Arm] Blood Pressure [Ri ght Upper Arm] Pulse Oximetry 98 96 94 Oxygen Delivery Me thod 01/18/23 16:33 01/18/23 16:45 01/18/23 16:52 Temperature Pulse Rate 128 H 130 H 131 H Pulse Rate [Pulse Oximeter] Respiratory Rate 20 20 18 Blood Pressure 129/108 H Blood Pressure [Le ft Arm] Blood Pressure [Ri ght Arm] Blood Pressure [Ri ght Upper Arm] Pulse Oximetry 95 94 100 Oxygen Delivery Me thod 01/18/23 17:01 01/18/23 17:11 01/18/23 17:22 Temperature Pulse Rate 131 H 131 H 131 H Pulse Rate [Pulse Oximeter] Respiratory Rate 18 20 18 Blood Pressure 130/97 H 138/102 H 151/99 H Blood Pressure [Le ft Arm] Blood Pressure [Ri ght Arm] Blood Pressure [Ri ght Upper Arm] Pulse Oximetry 99 94 96 Oxygen Delivery Me thod 01/18/23 17:31 01/18/23 17:32 01/18/23 17:43 Temperature Pulse Rate 135 H 133 H 133 H Pulse Rate [Pulse Oximeter] Respiratory Rate 16 18 Blood Pressure 110/98 H 120/101 H Blood Pressure [Le ft Arm] Blood Pressure [Ri ght Arm] Blood Pressure [Ri ght Upper Arm] Pulse Oximetry 95 95 95 Oxygen Delivery Me thod 01/18/23 17:53 01/18/23 18:00 01/18/23 18:01 Temperature Pulse Rate 134 H 131 H 132 H Pulse Rate [Pulse Oximeter] Respiratory Rate 16 Blood Pressure 158/95 H 157/108 H Blood Pressure [Le ft Arm] Blood Pressure [Ri ght Arm] Blood Pressure [Ri ght Upper Arm] Pulse Oximetry 95 95 95 Oxygen Delivery Me thod 01/18/23 18:11 01/18/23 18:21 01/18/23 18:35 Temperature Pulse Rate 134 H 133 H 126 H Pulse Rate [Pulse Oximeter] Respiratory Rate Blood Pressure 145/127 H 144/104 H Blood Pressure [Le ft Arm] Blood Pressure [Ri ght Arm] Blood Pressure [Ri ght Upper Arm] Pulse Oximetry 96 97 95 Oxygen Delivery Me thod 01/18/23 18:36 01/18/23 18:41 01/18/23 18:45 Temperature Pulse Rate 124 H 113 H 120 H Pulse Rate [Pulse Oximeter] Respiratory Rate Blood Pressure 139/99 H 103/85 Blood Pressure [Le ft Arm] Blood Pressure [Ri ght Arm] Blood Pressure [Ri ght Upper Arm] Pulse Oximetry 97 96 96 Oxygen Delivery Me thod 01/18/23 18:51 01/18/23 18:52 01/18/23 19:01 Temperature Pulse Rate 113 H 102 H 121 H Pulse Rate [Pulse Oximeter] Respiratory Rate Blood Pressure 102/89 94/68 Blood Pressure [Le ft Arm] Blood Pressure [Ri ght Arm] Blood Pressure [Ri ght Upper Arm] Pulse Oximetry 95 96 Oxygen Delivery Me thod 01/18/23 19:13 01/18/23 19:31 01/18/23 20:01 Temperature Pulse Rate 126 H 128 H 121 H Pulse Rate [Pulse Oximeter] Respiratory Rate Blood Pressure 104/83 114/81 109/66 Blood Pressure [Le ft Arm] Blood Pressure [Ri ght Arm] Blood Pressure [Ri ght Upper Arm] Pulse Oximetry Oxygen Delivery Me thod 01/18/23 20:41 01/18/23 20:45 01/18/23 20:49 Temperature Pulse Rate 120 H 127 H 116 H Pulse Rate [Pulse Oximeter] Respiratory Rate Blood Pressure 126/101 H Blood Pressure [Le ft Arm] Blood Pressure [Ri ght Arm] Blood Pressure [Ri ght Upper Arm] Pulse Oximetry 95 93 94 Oxygen Delivery Me thod 01/18/23 21:00 01/18/23 21:02 01/18/23 21:15 Temperature Pulse Rate 118 H 136 H Pulse Rate [Pulse Oximeter] Respiratory Rate Blood Pressure 139/77 Blood Pressure [Le ft Arm] Blood Pressure [Ri ght Arm] Blood Pressure [Ri ght Upper Arm] Pulse Oximetry 99 89 Oxygen Delivery Me thod 01/18/23 21:30 01/18/23 21:32 01/18/23 21:45 Temperature Pulse Rate 118 H 120 H Pulse Rate [Pulse Oximeter] Respiratory Rate Blood Pressure 103/83 Blood Pressure [Le ft Arm] Blood Pressure [Ri ght Arm] Blood Pressure [Ri ght Upper Arm] Pulse Oximetry 96 95 Oxygen Delivery Me thod 01/18/23 22:01 01/18/23 22:03 01/18/23 22:15 Temperature Pulse Rate 108 H 120 H Pulse Rate [Pulse Oximeter] Respiratory Rate Blood Pressure 107/66 Blood Pressure [Le ft Arm] Blood Pressure [Ri ght Arm] Blood Pressure [Ri ght Upper Arm] Pulse Oximetry 92 91 Oxygen Delivery Me thod 01/18/23 22:23 01/18/23 22:45 01/18/23 22:45 Temperature 97.5 F L Pulse Rate Pulse Rate [Pulse Oximeter] 125 H 112 H Respiratory Rate 20 18 18 Blood Pressure Blood Pressure [Le ft Arm] 135/72 Blood Pressure [Ri ght Arm] Blood Pressure [Ri ght Upper Arm] 107/66 Pulse Oximetry 98 98 Oxygen Delivery Me thod Room Air Room Air 01/19/23 02:00 01/19/23 03:00 01/19/23 04:00 Temperature Pulse Rate 81 Pulse Rate [Pulse Oximeter] 79 76 Respiratory Rate 16 16 Blood Pressure Blood Pressure [Le ft Arm] Blood Pressure [Ri ght Arm] 98/60 99/67 Blood Pressure [Ri ght Upper Arm] Pulse Oximetry 96 95 Oxygen Delivery Me thod Room Air Room Air 01/19/23 06:00 Temperature 97.5 F L Pulse Rate Pulse Rate [Pulse Oximeter] 77 Respiratory Rate 16 Blood Pressure Blood Pressure [Le ft Arm] Blood Pressure [Ri ght Arm] 98/62 Blood Pressure [Ri ght Upper Arm] Pulse Oximetry 93 Oxygen Delivery Me thod Room Air Labs Labs: Laboratory Results - last 24 hr 01/18/23 01/18/23 16:00 18:50 WBC 8.56 RBC 4.02 Hgb 11.7 L Hct 36.7 MCV 91 MCH 29 MCHC 32 RDW Coeff of Brittni 13.7 Plt Count 302 Neut % (Auto) 71.2 Lymph % (Auto) 18.8 L Hardeman % (Auto) 7.0 Eos % (Auto) 1.9 Baso % (Auto) 0.4 Neut # (Auto) 6.10 Lymph # (Auto) 1.60 Hardeman # (Auto) 0.60 Eos # (Auto) 0.16 Baso # (Auto) 0.03 Abs Immat Gran (auto) 0.06 Imm/Tot Granulo (auto) 0.7 Sodium 137 Potassium 4.2 Chloride 98 Carbon Dioxide 29 BUN 22 Creatinine 1.3 Estimated Creat Clear 38.77 Estimated GFR 45 Glucose 208 H Calcium 9.3 Total Bilirubin 0.5 AST 24 ALT 20 Alkaline Phosphatase 73 Total Creatine Kinase 78 Troponin I < 0.01 L < 0.01 L Total Protein 7.9 Albumin 4.3 Lab Acknowledgement Test Added
[2023-01-19 07:04] LABS: HCO3 VBG 27 mmol/L (21-28); Lactate* 1.8 mmol/L (0.5-1.9); PCO2 VBG 40 mmHG (40-50); PO2 VBG 44.8 mmHG (25-47); pH VBG 7.434 (7.32-7.43)
[2023-01-19 07:17] LABS: Hematocrit 34.4 % (33.0-51.0); Hemoglobin* 11.2 gm/dL (12.0-16.0); Mean Corpuscular HGB Conc 33 gm/dL (32-36); Mean Corpuscular Hemoglobin 30 pg (26-34); Mean Corpuscular Volume 91 fL (80-100); Platelet Count* 305 K/uL (140-440); Red Blood Count 3.77 m/uL (4.00-5.20); White Blood Count* 10.92 K/uL (4.50-11.00)
[2023-01-19 07:24] LABS: Slide Review Reflex No
[2023-01-19] MEDS: METOPROLOL TARTRATE 25 MG TABLET PO ×3 (07:59→23:18)
[2023-01-19 08:03] LABS: Chloride* 100 mmol/L (96-114); Potassium* 4.2 mmol/L (3.6-5.1); Sodium* 134 mmol/L (135-149)
[2023-01-19 08:06] LABS: Blood Urea Nitrogen* 21 mg/dL (7-30); Carbon Dioxide* 26 mmol/L (20-32); Creatinine* 1.2 mg/dL (0.5-1.5); Estimated Glomerular Filt Rate 49 ml/min
[2023-01-19 08:07] LABS: Calcium* 8.2 mg/dL (8.4-10.6); Glucose* 182 mg/dL (60-115); Magnesium* 1.8 mg/dL (1.5-2.6); Phosphorus* 3.9 mg/dL (2.5-4.5)
[2023-01-19 08:09] LABS: C Reactive Protein* 3.2 mg/dL (0.5-1.0)
[2023-01-19 08:15] LABS: NT Pro B Type NatriureticPept* 2660 pg/mL; Troponin I* < 0.01 ng/mL (0.01-0.04)
[2023-01-19] MEDS: GABAPENTIN 300 MG CAPSULE PO ×2 (08:59→21:17)
[2023-01-19] MEDS: METFORMIN ER 500 MG 1000 MG PO (08:59)
--- NOTE | 2023-01-19 09:43 | CRLHL7_ITS ---
For Patients: As a result of the Cures Act, medical imaging exams and procedure reports are released immediately into your electronic medical record. You may view this report before your referring provider. If you have questions, please contact your health care provider. HISTORY: Fall. TECHNIQUE: Three views of the right thumb. COMPARISON: No prior. FINDINGS: No acute fracture or dislocation. There are mild degenerative changes. No radiopaque foreign body or soft tissue gas. IMPRESSION: 1. No acute fracture or dislocation. 2. Mild degenerative changes. Dictated by Pablo Velasquez MD @ 01/19/2023 10:12:24 AM Dictated by: Pablo Velasquez MD @ 01/19/2023 10:12:28 (Electronically Signed)
[2023-01-19] MEDS: ENOXAPARIN 100 MG/ML INJ SUBCUT ×2 (11:14→23:17)
[2023-01-19 13:44] LABS: Appearance Urine Cloudy (Clear); Bilirubin Urine Negative (Negative); Blood Urine 2+ (Negative); Color Urine Yellow (Yellow); Glucose Urine Negative (Negative); Ketones Urine Negative (Negative); Leukocyte Esterase Urine 3+ (Negative); Nitrite Urine Positive (Negative); Protein Urine Negative (Negative); Urobilinogen Urine 0.2 (0.2-1.0)
[2023-01-19 14:05] LABS: Bacteria Urine Many; Squamous Epithelial Cell Urine Few (None-Few); WBC Urine >100 (0-5)
--- NOTE | 2023-01-19 14:19 | P.IMPN_ITS ---
Progress Note: A&P Assessment and plan (1) Fall: Problem details: Underlying unstable gait -diabetic neuropathy Status: Acute (2) Atrial flutter: Problem details: Sudden onset in the hospital, uncertain if new or paroxysmal -likely related to trauma/UTI -converted overnight, discontinued Cardizem drip -1 dose oral metoprolol this morning and she has been mildly hypotensive all day, not symptomatic -on lovenox for DVT ppx. if she stays in sinus, we do not have start OAC Echo today: Final Impressions: 1. Normal LV size, not well visualized wall thickness, normal global systolic function with an estimated EF of 55 - 60%. 2. Technically limited exam. 3. Right ventricular cavity size is not well visualized, global systolic RV function is not well visualized. 4. The mitral valve is notable for MAC, trace mitral regurgitation. 5. The inferior vena cava is dilated, respiratory size variation greater than 50%. 6. Echo contrast was administrered to enhance visualization of all left vent ricular segments. 7. The aortic sinus is dilated with a maximal diameter of 3.8 cm. Status: Acute (3) Closed head injury: Problem details: Status post fall in home Left parietal subgaleal hematoma. Status: Acute (4) UTI (urinary tract infection): Problem details: rocephin 2 grams now, repeat 1 gram in 24 hours await c/s Status: Acute (5) Chronic kidney disease: Problem details: at baseline Stage IIIb baseline creat 1.3-1.5 Status: Acute (6) Anemia in chronic kidney disease (CKD): Problem details: baseline hemoglobin 11.0-11.6 Status: Acute (7) Diabetes mellitus: Problem details: monotherapy with metformin SSI, ACHS glucose bedside finger sticks Status: Acute (8) Hypertension: Problem details: home lisinopril on hold Status: Acute (9) Diabetic polyneuropathy: Problem details: increases fall risk Status: Acute (10) Hyperparathyroidism, secondary renal: Status: Acute Subjective Date Seen: 01/19/23 Interval history: Daily Progress Note - Hospital Medicine Day #: 2 CC: AFIB RVR. OVERNIGHT UPDATES FROM STAFF & MED, LAB, IMAGING UPDATES Patient converted to sinus rhythm overnight. Dilt drip was stopped. She received 1 dose of Lopressor, oral, 25 mg this morning. She has been mildly hypotensive, however asymptomatic, throughout the day. When I ask her more about the details of her fall she thinks that she was ?out? for 2-3 hours. I went over all of her imaging which included a head CT, C-spine, left shoulder, elbow, wrist, hip, knee. Notably: CK normal Creat is normal UA markedly abnormal, urine culture pending 85/67 Pulse 78 Resp is 18 Afebrile O2 sat 94% on room air 125 kilos This morning's hemoglobin was 11.2 PH is 7.4 Sodium went from 137-134 Creatinine is stable Troponin undetectable BNP 2600 C reactive protein 3.2 Blood sugar 152, 188 Urine showed a 2+ blood, positive nitrite, 3+ leukocyte esterase, greater than 100 white blood cells Her last 2 urine cultures on record both showed E coli This urine culture still pending Objective: Vitals: see above Lungs: Clear. Cardiac: S1S2. Discussed the way she moves in her ability to self-care with OT who helped her get washed up and in and out of her chair. Disposition/Potential discharge - Likely to return to previous living situation. May need short-term rehab Total time is 35 minutes with greater than 50% spent in counseling and coordination of care. Exam Const: Vital Signs, click to edit/add: Vital Signs - 24 hr 01/18/23 15:10 01/18/23 15:10 01/18/23 15:18 Temperature 97.3 F L Pulse Rate 82 Pulse Rate [Pulse Oximeter] 76 Respiratory Rate 16 18 Blood Pressure 157/88 H Blood Pressure [Le ft Arm] Blood Pressure [Ri ght Arm] Blood Pressure [Ri ght Upper Arm] 157/88 H Pulse Oximetry 98 98 97 Oxygen Delivery Me thod Room Air 01/18/23 15:22 01/18/23 15:32 01/18/23 15:33 Temperature Pulse Rate 71 82 85 Pulse Rate [Pulse Oximeter] Respiratory Rate 20 16 18 Blood Pressure 140/105 H 157/109 H Blood Pressure [Le ft Arm] Blood Pressure [Ri ght Arm] Blood Pressure [Ri ght Upper Arm] Pulse Oximetry 98 96 94 Oxygen Delivery Me thod 01/18/23 16:33 01/18/23 16:45 01/18/23 16:52 Temperature Pulse Rate 128 H 130 H 131 H Pulse Rate [Pulse Oximeter] Respiratory Rate 20 20 18 Blood Pressure 129/108 H Blood Pressure [Le ft Arm] Blood Pressure [Ri ght Arm] Blood Pressure [Ri ght Upper Arm] Pulse Oximetry 95 94 100 Oxygen Delivery Me thod 01/18/23 17:01 01/18/23 17:11 01/18/23 17:22 Temperature Pulse Rate 131 H 131 H 131 H Pulse Rate [Pulse Oximeter] Respiratory Rate 18 20 18 Blood Pressure 130/97 H 138/102 H 151/99 H Blood Pressure [Le ft Arm] Blood Pressure [Ri ght Arm] Blood Pressure [Ri ght Upper Arm] Pulse Oximetry 99 94 96 Oxygen Delivery Me thod 01/18/23 17:31 01/18/23 17:32 01/18/23 17:43 Temperature Pulse Rate 135 H 133 H 133 H Pulse Rate [Pulse Oximeter] Respiratory Rate 16 18 Blood Pressure 110/98 H 120/101 H Blood Pressure [Le ft Arm] Blood Pressure [Ri ght Arm] Blood Pressure [Ri ght Upper Arm] Pulse Oximetry 95 95 95 Oxygen Delivery Me thod 01/18/23 17:53 01/18/23 18:00 01/18/23 18:01 Temperature Pulse Rate 134 H 131 H 132 H Pulse Rate [Pulse Oximeter] Respiratory Rate 16 Blood Pressure 158/95 H 157/108 H Blood Pressure [Le ft Arm] Blood Pressure [Ri ght Arm] Blood Pressure [Ri ght Upper Arm] Pulse Oximetry 95 95 95 Oxygen Delivery Me thod 01/18/23 18:11 01/18/23 18:21 01/18/23 18:35 Temperature Pulse Rate 134 H 133 H 126 H Pulse Rate [Pulse Oximeter] Respiratory Rate Blood Pressure 145/127 H 144/104 H Blood Pressure [Le ft Arm] Blood Pressure [Ri ght Arm] Blood Pressure [Ri ght Upper Arm] Pulse Oximetry 96 97 95 Oxygen Delivery Me thod 01/18/23 18:36 01/18/23 18:41 01/18/23 18:45 Temperature Pulse Rate 124 H 113 H 120 H Pulse Rate [Pulse Oximeter] Respiratory Rate Blood Pressure 139/99 H 103/85 Blood Pressure [Le ft Arm] Blood Pressure [Ri ght Arm] Blood Pressure [Ri ght Upper Arm] Pulse Oximetry 97 96 96 Oxygen Delivery Me thod 01/18/23 18:51 01/18/23 18:52 01/18/23 19:01 Temperature Pulse Rate 113 H 102 H 121 H Pulse Rate [Pulse Oximeter] Respiratory Rate Blood Pressure 102/89 94/68 Blood Pressure [Le ft Arm] Blood Pressure [Ri ght Arm] Blood Pressure [Ri ght Upper Arm] Pulse Oximetry 95 96 Oxygen Delivery Me thod 01/18/23 19:13 01/18/23 19:31 01/18/23 20:01 Temperature Pulse Rate 126 H 128 H 121 H Pulse Rate [Pulse Oximeter] Respiratory Rate Blood Pressure 104/83 114/81 109/66 Blood Pressure [Le ft Arm] Blood Pressure [Ri ght Arm] Blood Pressure [Ri ght Upper Arm] Pulse Oximetry Oxygen Delivery Me thod 01/18/23 20:41 01/18/23 20:45 01/18/23 20:49 Temperature Pulse Rate 120 H 127 H 116 H Pulse Rate [Pulse Oximeter] Respiratory Rate Blood Pressure 126/101 H Blood Pressure [Le ft Arm] Blood Pressure [Ri ght Arm] Blood Pressure [Ri ght Upper Arm] Pulse Oximetry 95 93 94 Oxygen Delivery Me thod 01/18/23 21:00 01/18/23 21:02 01/18/23 21:15 Temperature Pulse Rate 118 H 136 H Pulse Rate [Pulse Oximeter] Respiratory Rate Blood Pressure 139/77 Blood Pressure [Le ft Arm] Blood Pressure [Ri ght Arm] Blood Pressure [Ri ght Upper Arm] Pulse Oximetry 99 89 Oxygen Delivery Me thod 01/18/23 21:30 01/18/23 21:32 01/18/23 21:45 Temperature Pulse Rate 118 H 120 H Pulse Rate [Pulse Oximeter] Respiratory Rate Blood Pressure 103/83 Blood Pressure [Le ft Arm] Blood Pressure [Ri ght Arm] Blood Pressure [Ri ght Upper Arm] Pulse Oximetry 96 95 Oxygen Delivery Me thod 01/18/23 22:01 01/18/23 22:03 01/18/23 22:15 Temperature Pulse Rate 108 H 120 H Pulse Rate [Pulse Oximeter] Respiratory Rate Blood Pressure 107/66 Blood Pressure [Le ft Arm] Blood Pressure [Ri ght Arm] Blood Pressure [Ri ght Upper Arm] Pulse Oximetry 92 91 Oxygen Delivery Me thod 01/18/23 22:23 01/18/23 22:45 01/18/23 22:45 Temperature 97.5 F L Pulse Rate Pulse Rate [Pulse Oximeter] 125 H 112 H Respiratory Rate 20 18 18 Blood Pressure Blood Pressure [Le ft Arm] 135/72 Blood Pressure [Ri ght Arm] Blood Pressure [Ri ght Upper Arm] 107/66 Pulse Oximetry 98 98 [facility] Room Air 01/19/23 02:00 01/19/23 03:00 01/19/23 04:00 Temperature Pulse Rate 81 Pulse Rate [Pulse Oximeter] 79 76 Respiratory Rate 16 16 Blood Pressure Blood Pressure [Le ft Arm] Blood Pressure [Ri ght Arm] 98/60 99/67 Blood Pressure [Ri ght Upper Arm] Pulse Oximetry 96 95 [facility] Room Air 01/19/23 06:00 01/19/23 07:11 01/19/23 07:48 Temperature 97.5 F L Pulse Rate 76 Pulse Rate [Pulse Oximeter] 77 Respiratory Rate 16 Blood Pressure Blood Pressure [Le ft Arm] Blood Pressure [Ri ght Arm] 98/62 Blood Pressure [Ri ght Upper Arm] Pulse Oximetry 93 95 [facility] Room Air 01/19/23 07:48 01/19/23 11:12 Temperature 97.5 F L 97.9 F Pulse Rate Pulse Rate [Pulse Oximeter] 78 78 Respiratory Rate 18 18 Blood Pressure Blood Pressure [Le ft Arm] Blood Pressure [Ri ght Arm] 100/63 85/67 L Blood Pressure [Ri ght Upper Arm] Pulse Oximetry 95 94 [facility] Room Air Labs Labs: Laboratory Results - last 24 hr 01/18/23 01/18/23 01/19/23 16:00 18:50 06:37 WBC 8.56 10.92 RBC 4.02 3.77 L Hgb 11.7 L 11.2 L Hct 36.7 34.4 MCV 91 91 MCH 29 30 MCHC 32 33 RDW Coeff of Brittni 13.7 Plt Count 302 305 Neut % (Auto) 71.2 Lymph % (Auto) 18.8 L [place] % (Auto) 7.0 Eos % (Auto) 1.9 Baso % (Auto) 0.4 Neut # (Auto) 6.10 Lymph # (Auto) 1.60 [place] # (Auto) 0.60 Eos # (Auto) 0.16 Baso # (Auto) 0.03 Abs Immat Gran (auto) 0.06 Imm/Tot Granulo (auto) 0.7 VBG pH 7.434 H VBG pCO2 40 VBG pO2 44.8 VBG HCO3 27 Sodium 137 134 L Potassium 4.2 4.2 Chloride 98 100 Carbon Dioxide 29 26 BUN 22 21 Creatinine 1.3 1.2 Estimated Creat Clear 38.77 42.00 Estimated GFR 45 49 Glucose 208 H 182 H Lactate 1.8 Calcium 9.3 8.2 L Phosphorus 3.9 Magnesium 1.8 Total Bilirubin 0.5 AST 24 ALT 20 Alkaline Phosphatase 73 Total Creatine Kinase 78 Troponin I < 0.01 L < 0.01 L < 0.01 L C-Reactive Protein 3.2 H NT-Pro-B Natriuret Pep 2660 Total Protein 7.9 Albumin 4.3 TSH 1.410 Urine Color Urine Appearance Urine pH Ur Specific [place] Urine Protein Urine Glucose (UA) Urine Ketones Urine Blood Urine Nitrite Urine Bilirubin Urine Urobilinogen Ur Leukocyte Esterase Urine RBC Urine WBC Ur Squamous Epith Cells Urine Bacteria Lab Acknowledgement Test Added 01/19/23 13:36 WBC RBC Hgb Hct MCV MCH MCHC RDW Coeff of Brittni Plt Count Neut % (Auto) Lymph % (Auto) [place] % (Auto) Eos % (Auto) Baso % (Auto) Neut # (Auto) Lymph # (Auto) [place] # (Auto) Eos # (Auto) Baso # (Auto) Abs Immat Gran (auto) Imm/Tot Granulo (auto) VBG pH VBG pCO2 VBG pO2 VBG HCO3 Sodium Potassium Chloride Carbon Dioxide BUN Creatinine Estimated Creat Clear Estimated GFR Glucose Lactate Calcium Phosphorus Magnesium Total Bilirubin AST ALT Alkaline Phosphatase Total Creatine Kinase Troponin I C-Reactive Protein NT-Pro-B Natriuret Pep Total Protein Albumin TSH Urine Color Yellow Urine Appearance Cloudy A Urine pH 6.0 Ur Specific [place] 1.010 Urine Protein Negative Urine Glucose (UA) Negative Urine Ketones Negative Urine Blood 2+ A Urine Nitrite Positive A Urine Bilirubin Negative Urine Urobilinogen 0.2 Ur Leukocyte Esterase 3+ A Urine RBC 10-25 A Urine WBC >100 A Ur Squamous Epith Cells Few Urine Bacteria Many A Lab Acknowledgement
[2023-01-19] MEDS: cefTRIAXone 2 GM in 0.9 % SODIUM CHLORIDE Mini-bag 100 ML IVPB (15:24)
[2023-01-19] MEDS: ATORVASTATIN 10 MG TABLET 20 MG PO (21:17)
[2023-01-20] VITALS (8 sets, daily range): BP systolic 102–132; BP diastolic 63–94; PULSE 62–79; RESP 16–22; TEMP 36.1–36.7; O2SAT 94–969
[2023-01-20] MEDS: METOPROLOL TARTRATE 25 MG TABLET PO ×2 (03:27→07:54)
--- NOTE | 2023-01-20 05:43 | PC.NURSE ---
END OF SHIFT NOTE: PT PLEASANT AND COOPERATIVE. PT DENIES CP, SOB, N/V. LEFT ARM IN SLING. AMBULATES WITH WALKER, GB, A1-2. VSS ON RA; AFEBRILE. HS BG 174; RECEIVED 2 UNITS SS. PT SLEPT IN CHAIR. TELE READS NSR WITH BBB. CALL LIGHT WITHIN PT?S REACH.?
[2023-01-20 06:37] LABS: HCO3 VBG 27 mmol/L (21-28); PCO2 VBG 46 mmHG (40-50); PO2 VBG 33.5 mmHG (25-47); pH VBG 7.378 (7.32-7.43)
[2023-01-20 06:45] LABS: Hematocrit 36.7 % (33.0-51.0); Hemoglobin* 11.7 gm/dL (12.0-16.0); Mean Corpuscular HGB Conc 32 gm/dL (32-36); Mean Corpuscular Hemoglobin 30 pg (26-34); Mean Corpuscular Volume 92 fL (80-100); Platelet Count* 295 K/uL (140-440); Red Blood Count 3.97 m/uL (4.00-5.20); White Blood Count* 8.82 K/uL (4.50-11.00)
[2023-01-20 07:01] LABS: Slide Review Reflex No
[2023-01-20 07:05] LABS: Chloride* 100 mmol/L (96-114)
[2023-01-20 07:06] LABS: Sodium* 136 mmol/L (135-149)
[2023-01-20 07:08] LABS: Creatinine* 1.4 mg/dL (0.5-1.5); Estimated Glomerular Filt Rate 41 ml/min
[2023-01-20 07:09] LABS: Blood Urea Nitrogen* 26 mg/dL (7-30); Carbon Dioxide* 27 mmol/L (20-32); Glucose* 179 mg/dL (60-115)
[2023-01-20 07:10] LABS: Calcium* 8.5 mg/dL (8.4-10.6); Magnesium* 1.9 mg/dL (1.5-2.6)
[2023-01-20 07:12] LABS: C Reactive Protein* 5.1 mg/dL (0.5-1.0)
[2023-01-20 07:22] LABS: NT Pro B Type NatriureticPept* 683 pg/mL; Troponin I* < 0.01 ng/mL (0.01-0.04)
[2023-01-20] MEDS: GABAPENTIN 300 MG CAPSULE PO ×2 (08:44→20:39)
[2023-01-20] MEDS: METFORMIN ER 500 MG 1000 MG PO (08:45)
--- NOTE | 2023-01-20 09:20 | NUTR.NU ---
RDN with nutrition screen for diabetic diet and diagnosis of Diabetes Mellitus. Diabetic diet education provided to patient, patient's designated caregiver, and son. Patient and family report being familiar with the diabetic diet. Discussed basics of carbohydrate counting including sources of carbohydrates, serving sizes, and label reading. Discussed using the plate method for carbohydrate-controlled, balanced meals that include ? plate non-starchy vegetables, ? plate protein, and 3-4 servings of carbohydrates per meal (fruit, whole grains, legumes, milk, yogurt) and 1-2 per snack. Handouts provided to support discussion. RDN contact information provided and encouraged patient to call with questions. RDN to follow up as needed.
[2023-01-20] MEDS: ENOXAPARIN 100 MG/ML INJ SUBCUT (11:17)
[2023-01-20] MEDS: METOPROLOL TARTRATE 25 MG TABLET 12.5 MG PO ×3 (12:52→20:39)
--- NOTE | 2023-01-20 12:53 | P.IMPN_ITS ---
Progress Note: A&P Assessment and plan (1) Fall: Problem details: Underlying unstable gait -diabetic neuropathy Status: Acute (2) Atrial flutter: Problem details: Sudden onset in the hospital, uncertain if new or paroxysmal - -likely related to trauma/UTI -converted on night 1 discontinued Cardizem drip -p.r.n. doses of metoprolol being used to manage blood pressure and arrhythmia. Lisinopril on hold. -on lovenox for DVT ppx. if she stays in sinus, we do not have start OAC Echo today: Final Impressions: 1. Normal LV size, not well visualized wall thickness, normal global systolic function with an estimated EF of 55 - 60%. 2. Technically limited exam. 3. Right ventricular cavity size is not well visualized, global systolic RV function is not well visualized. 4. The mitral valve is notable for MAC, trace mitral regurgitation. 5. The inferior vena cava is dilated, respiratory size variation greater than 50%. 6. Echo contrast was administrered to enhance visualization of all left ventricular segments. 7. The aortic sinus is dilated with a maximal diameter of 3.8 cm. Status: Acute (3) Closed head injury: Problem details: Status post fall in home Left parietal subgaleal hematoma. Status: Acute (4) UTI (urinary tract infection): Problem details: rocephin 2 grams now, repeat 1 gram in 24 hours await c/s Status: Acute (5) Chronic kidney disease: Problem details: at baseline Stage IIIb baseline creat 1.3-1.5 Status: Acute (6) Anemia in chronic kidney disease (CKD): Problem details: baseline hemoglobin 11.0-11.6 Status: Acute (7) Diabetes mellitus: Problem details: monotherapy with metformin SSI, ACHS glucose bedside finger sticks Status: Acute (8) Hypertension: Problem details: home lisinopril on hold Status: Acute (9) Diabetic polyneuropathy: Problem details: increases fall risk Status: Acute (10) Hyperparathyroidism, secondary renal: Status: Acute Subjective Date Seen: 01/20/23 Interval history: Daily Progress Note - Hospital Medicine Day #: 3 CC: AFIB RVR. OVERNIGHT UPDATES FROM STAFF & MED, LAB, IMAGING UPDATES Patient continues to improve. Moving the left leg easier, some increase in ROM with the left shoulder but that is her most limiting pain. continues in sinus; bp low normal but better than yesterday. Notably: CK normal Creat is normal UA markedly abnormal, urine culture pending vitals reviewed. Hemoglobin stable. Blood gas with normal pH and no CO2 retention. Electrolytes normal. BNP has been markedly improved. Troponin undetectable. Urine culture still pending. No blood cultures drawn Objective: Looks brighter. Or interactive. Vitals: see above Lungs: Clear. Cardiac: S1S2. Family discussion regarding her steps in recuperation from this fall. Son, OT, were all in the room. Consensus was a short-term stay in rehab would be most appropriate. Disposition/Potential discharge - Social work looking for short-term Total time is 35 minutes with greater than 50% spent in counseling and coordination of care. Exam Const: Vital Signs, click to edit/add: Vital Signs - 24 hr 01/19/23 15:06 01/19/23 15:17 01/19/23 15:17 Temperature 98.2 F Pulse Rate 77 Pulse Rate [Pulse Oximeter] 76 Respiratory Rate 18 Blood Pressure [Ri ght Arm] 99/62 Pulse Oximetry 96 96 [facility] 01/19/23 19:45 01/19/23 21:42 01/19/23 21:42 Temperature 98.0 F Pulse Rate Pulse Rate [Pulse Oximeter] 73 73 Respiratory Rate 24 24 24 Blood Pressure [Ri ght Arm] 86/52 L Pulse Oximetry 96 96 Oxygen Delivery [facility] Room Air Room Air 01/19/23 23:00 01/20/23 02:28 01/20/23 03:30 Temperature 97.5 F L 98.1 F Pulse Rate 68 Pulse Rate [Pulse Oximeter] 77 68 Respiratory Rate 18 22 Blood Pressure [Ri ght Arm] 103/61 111/64 Pulse Oximetry 95 97 [facility] Room [facility] 01/20/23 07:00 01/20/23 07:00 01/20/23 07:00 Temperature Pulse Rate 64 Pulse Rate [Pulse Oximeter] 68 Respiratory Rate 18 18 Blood Pressure [Ri ght Arm] Pulse Oximetry 98 [facility] 01/20/23 07:00 01/20/23 11:00 Temperature 97.0 F L 97.4 F L Pulse Rate Pulse Rate [Pulse Oximeter] 68 73 Respiratory Rate 18 18 Blood Pressure [Ri ght Arm] 112/73 132/77 Pulse Oximetry 98 96 Oxygen Delivery Me thod Room Air Room Air Labs Labs: Laboratory Results - last 24 hr 01/19/23 01/20/23 13:36 06:16 WBC 8.82 RBC 3.97 L Hgb 11.7 L Hct 36.7 MCV 92 MCH 30 MCHC 32 Plt Count 295 VBG pH 7.378 VBG pCO2 46 VBG pO2 33.5 VBG HCO3 27 Sodium 136 Potassium 4.0 Chloride 100 Carbon Dioxide 27 BUN 26 Creatinine 1.4 Estimated Creat Clear 36.00 Estimated GFR 41 Glucose 179 H Calcium 8.5 Magnesium 1.9 Troponin I < 0.01 L C-Reactive Protein 5.1 H NT-Pro-B Natriuret Pep 683 Urine Color Yellow Urine Appearance Cloudy A Urine pH 6.0 Ur Specific [place] 1.010 Urine Protein Negative Urine Glucose (UA) Negative Urine Ketones Negative Urine Blood 2+ A Urine Nitrite Positive A Urine Bilirubin Negative Urine Urobilinogen 0.2 Ur Leukocyte Esterase 3+ A Urine RBC 10-25 A Urine WBC >100 A Ur Squamous Epith Cells Few Urine Bacteria Many A
--- NOTE | 2023-01-20 14:32 | PC.SOCIAL ---
Met with pt., spouse Scott at [phone], son Asim @ [phone] to discuss discharge plans. Initially pt. was going to discharge home with spouse assisting and home care. Spouse states he is not able to assist more at home due to his volunteer schedule. The recommendation is now short-term rehab. Preference for placement is [place], [place], or [place]. 1. [facility]- No beds available 2. [facility]-Message left on availability. 3. [facility]-Has a bed and can accept pending prior authorization from pt.'s [employer] insurance.
[2023-01-20] MEDS: cefTRIAXone 1 GM in 0.9 % SODIUM CHLORIDE Mini-bag 100 ML IVPB (15:38)
--- NOTE | 2023-01-20 17:42 | PC.NURSE ---
End of shift note: pt. alert and oriented. mild forgetfulness at times. Patient is pleasant and cooperative. She denies any CP/SOB/N/V. Patient states she is tolerating the pain in her left shoulder. Patient ambulates SBA with walker/GB and A1 to BR and to chair. VSS, on RA. Patient Afebrile this shift, BG 160, 153, and 137. see emar for sliding scale. Patient on Tele, NSR. Discharge plan for patient, she will need short term rehab, awaiting prior authorization from insurance and may go to LTCC downstairs.
[2023-01-20] MEDS: ATORVASTATIN 10 MG TABLET 20 MG PO (20:40)
[2023-01-20] MEDS: SODIUM CHLORIDE 0.9 % (FLUSH) 10 ML SYRINGE 5 ML IVF ×2 (20:41)
[2023-01-21] VITALS (7 sets, daily range): BP systolic 108–120; BP diastolic 60–79; PULSE 59–78; RESP 16–20; TEMP 36.1–36.9; O2SAT 91–98
[2023-01-21] MEDS: METOPROLOL TARTRATE 25 MG TABLET 12.5 MG PO ×6 (00:04→21:03)
[2023-01-21] MEDS: ENOXAPARIN 100 MG/ML INJ SUBCUT ×3 (00:04→21:07)
--- NOTE | 2023-01-21 05:29 | PC.NURSE ---
Pt AO, pleasant and cooperative throughout shift. Ambulatory with walker, SBA, tolerating well. Pt continent with urine x1, incontinent in brief x1. BP's within parameters to take all doses of metoprolol throughout shift. Pt reports discomfort in left shoulder, requested heating pad. Aqua K pad set up in room, pt reports improvement.
[2023-01-21] MEDS: ACETAMINOPHEN 325 MG TABLET 650 MG PO ×3 (08:05→21:04)
[2023-01-21] MEDS: METFORMIN ER 500 MG 1000 MG PO (08:38)
[2023-01-21] MEDS: GABAPENTIN 300 MG CAPSULE PO ×2 (08:38→21:04)
[2023-01-21] MEDS: TRAMADOL HCL 50 MG TABLET PO (10:48)
[2023-01-21] MEDS: AMOXICILLIN/CLAVULANATE 500 mg/125 mg TABLET PO ×2 (10:48→17:25)
--- NOTE | 2023-01-21 12:42 | P.IMPN_ITS ---
Progress Note: A&P Assessment and plan (1) Fall: Problem details: Underlying unstable gait -diabetic neuropathy Status: Acute (2) Atrial flutter: Problem details: Sudden onset in the hospital, uncertain if new or paroxysmal - -likely related to trauma/UTI -converted on night 1 discontinued Cardizem drip -p.r.n. doses of metoprolol being used to manage blood pressure and arrhythmia. Lisinopril on hold. -on lovenox for DVT ppx. if she stays in sinus, we do not have start OAC Echo today: Final Impressions: 1. Normal LV size, not well visualized wall thickness, normal global systolic function with an estimated EF of 55 - 60%. 2. Technically limited exam. 3. Right ventricular cavity size is not well visualized, global systolic RV function is not well visualized. 4. The mitral valve is notable for MAC, trace mitral regurgitation. 5. The inferior vena cava is dilated, respiratory size variation greater than 50%. 6. Echo contrast was administrered to enhance visualization of all left ventricular segments. 7. The aortic sinus is dilated with a maximal diameter of 3.8 cm. Status: Acute (3) Closed head injury: Problem details: Status post fall in home Left parietal subgaleal hematoma. Status: Acute (4) UTI (urinary tract infection): Problem details: transitioned from rocephin to augmentin. previous infection was perez sensitive ecoli await c/s Status: Acute (5) Chronic kidney disease: Problem details: at baseline Stage IIIb baseline creat 1.3-1.5 Status: Acute (6) Anemia in chronic kidney disease (CKD): Problem details: baseline hemoglobin 11.0-11.6 Status: Acute (7) Diabetes mellitus: Problem details: monotherapy with metformin SSI, ACHS glucose bedside finger sticks Status: Acute (8) Hypertension: Problem details: at discharge will resume lower dose of lisinopril and metoprolol 12.5mg bid Status: Acute (9) Diabetic polyneuropathy: Problem details: increases fall risk Status: Acute (10) Hyperparathyroidism, secondary renal: Status: Acute Subjective Date Seen: 01/21/23 Interval history: Daily Progress Note - Hospital Medicine Day #: 4 CC: AFIB RVR after a fall at home, immoblization and soft tissue injuries OVERNIGHT UPDATES FROM STAFF & MED, LAB, IMAGING UPDATES Patient continues to improve. Moving the left leg easier, some increase in ROM with the left shoulder but that is her most limiting pain. continues in sinus; bp low normal but better than yesterday. No new labs today. vitals reviewed. Urine culture growing gram neg rods Objective: Looks brighter. however doesn't remember meeting me yesterday (concused?) Vitals: see above Lungs: Clear. Cardiac: S1S2. Disposition/Potential discharge - Social work looking for short-term Total time is 35 minutes with greater than 50% spent in counseling and coordination of care. Exam Const: Vital Signs, click to edit/add: Vital Signs - 24 hr 01/20/23 15:00 01/20/23 15:00 01/20/23 15:00 Temperature Pulse Rate 76 Pulse Rate [Left A pical] Pulse Rate [Pulse Oximeter] 79 Respiratory Rate 18 18 Blood Pressure [Ri ght Arm] Pulse Oximetry [facility] 01/20/23 15:00 01/20/23 19:00 01/20/23 20:07 Temperature 97.4 F L 97.5 F L Pulse Rate 69 Pulse Rate [Left A pical] Pulse Rate [Pulse Oximeter] 79 62 Respiratory Rate 18 20 Blood Pressure [Ri ght Arm] 123/94 H 105/67 Pulse Oximetry 969 H 95 [facility] 01/20/23 23:00 01/20/23 23:00 01/20/23 23:00 Temperature 97.0 F L Pulse Rate Pulse Rate [Left A pical] Pulse Rate [Pulse Oximeter] 62 65 Respiratory Rate 20 20 16 Blood Pressure [Ri ght Arm] 102/63 Pulse Oximetry 95 94 Oxygen Delivery [facility] Room Air Room Air 01/21/23 03:00 01/21/23 07:00 01/21/23 07:30 Temperature 97.0 F L Pulse Rate 67 Pulse Rate [Left A pical] Pulse Rate [Pulse Oximeter] 62 Respiratory Rate 16 20 Blood Pressure [Ri ght Arm] 114/60 Pulse Oximetry 95 98 Oxygen Delivery [facility] Room Air Room Air 01/21/23 07:30 01/21/23 11:30 Temperature 98.2 F 98.4 F Pulse Rate Pulse Rate [Left A pical] 77 72 Pulse Rate [Pulse Oximeter] 77 72 Respiratory Rate 20 20 Blood Pressure [Ri ght Arm] 111/76 108/68 Pulse Oximetry 98 95 Oxygen Delivery Me thod Room Air Room Air
--- NOTE | 2023-01-21 14:09 | PC.NURSE ---
TELE SOLEDADR. [place] by Dr. Lopez. Orders to d/c tele and d/c SL. Pt is awaiting insurance approval for move to LTCC for rehab and strengthening. No dysphagia with meds. Ambulated and exercised with PT. Showered with OT, dressed in her own clothing in preparation for anticipated d/c to SNF. BG 174 at bkfst, 154 at lunch, both of these glucose values required 2 units of SS insulin. Pt has mild dyspnea with ambulation, however sats maintained on room air. No dysphagia with meds. Adequate I & 0. Report will be given to oncoming shift RN.
--- NOTE | 2023-01-21 14:40 | PC.NURSE ---
Addendum: charting correction pt's BG was 172 not 174 at lunch, nursing error by myself Holger Carrero RN.
[2023-01-21] MEDS: ATORVASTATIN 10 MG TABLET 20 MG PO (21:03)
--- NOTE | 2023-01-21 23:18 | PC.NURSE ---
End of shift-- Very pleasant and cooperative, alert and oriented patient. LIME. VSS and pt is afebrile. SPO2 maintained >90% on RA. She c/o some pain in left shoulder that appears to be well managed with Tylenol, ice and heat. LS CTA. HR reg. She denied nausea and ate 100% of a regular diabetic diet independently without difficulty. Blood sugars 141 and 189 and pt was given insulin per sliding scale. She was up to BR and chair with SBA/ independently and tolerated it well. Report to BENITEZ Duron.
[2023-01-22] VITALS (7 sets, daily range): BP systolic 107–129; BP diastolic 63–78; PULSE 64–89; RESP 18–20; TEMP 36.5–36.8; O2SAT 95–97
[2023-01-22] MEDS: METOPROLOL TARTRATE 25 MG TABLET 12.5 MG PO ×3 (05:00→08:42)
--- NOTE | 2023-01-22 05:19 | PC.NURSE ---
Shift note: The pt has been pleasant and cooperative. Denied chest pain, short of breath, headache or other acute distress throughout the night. The pt stated that she slept good. Denied shoulder pain at rest/ with activity she c/o minor pain; the Pt stated that the pain is getting better every day. SBA with a walker to the BR
[2023-01-22] MEDS: METFORMIN ER 500 MG 1000 MG PO (08:36)
[2023-01-22] MEDS: GABAPENTIN 300 MG CAPSULE PO ×2 (08:36→20:27)
[2023-01-22] MEDS: TRAMADOL HCL 50 MG TABLET PO (08:36)
[2023-01-22] MEDS: AMOXICILLIN/CLAVULANATE 500 mg/125 mg TABLET PO ×2 (08:36→17:54)
[2023-01-22] MEDS: ACETAMINOPHEN 325 MG TABLET 650 MG PO (08:37)
[2023-01-22] MEDS: ENOXAPARIN 100 MG/ML INJ SUBCUT ×2 (08:41→20:27)
--- NOTE | 2023-01-22 11:24 | PM.IMPN1 ---
Progress Note: A&P Assessment and plan (1) Fall: Problem details: Underlying unstable gait -diabetic neuropathy -likely resulted in rotator cuff strain/tear, other soft tissue -injected left shoulder with kenalog/lido/marcaine in the subacromic space Status: Acute (2) Atrial flutter: Problem details: Sudden onset in the hospital, uncertain if new or paroxysmal - -likely related to trauma/UTI -converted on night 1 discontinued Cardizem drip -p.r.n. doses of metoprolol being used to manage blood pressure and arrhythmia. Lisinopril on hold. -on lovenox for DVT ppx. if she stays in sinus, we do not have start OAC Echo today: Final Impressions: 1. Normal LV size, not well visualized wall thickness, normal global systolic function with an estimated EF of 55 - 60%. 2. Technically limited exam. 3. Right ventricular cavity size is not well visualized, global systolic RV function is not well visualized. 4. The mitral valve is notable for MAC, trace mitral regurgitation. 5. The inferior vena cava is dilated, respiratory size variation greater than 50%. 6. Echo contrast was administrered to enhance visualization of all left ventricular segments. 7. The aortic sinus is dilated with a maximal diameter of 3.8 cm. Status: Acute (3) Closed head injury: Problem details: Status post fall in home Left parietal subgaleal hematoma. likely concussed - following clinically Status: Acute (4) UTI (urinary tract infection): Problem details: transitioned from rocephin to augmentin. previous infection was perez sensitive ecoli await c/s Status: Acute (5) Chronic kidney disease: Problem details: at baseline Stage IIIb baseline creat 1.3-1.5 Status: Acute (6) Anemia in chronic kidney disease (CKD): Problem details: baseline hemoglobin 11.0-11.6 Status: Acute (7) Diabetes mellitus: Problem details: monotherapy with metformin SSI, ACHS glucose bedside finger sticks Status: Acute (8) Hypertension: Problem details: at discharge will resume lower dose of lisinopril and metoprolol 25mg bid Status: Acute (9) Diabetic polyneuropathy: Problem details: increases fall risk Status: Acute (10) Hyperparathyroidism, secondary renal: Status: Acute Subjective Date Seen: 01/22/23 Interval history: Daily Progress Note - Hospital Medicine Day #: 5 CC: AFIB RVR after a fall at home, immoblization and soft tissue injuries OVERNIGHT UPDATES FROM STAFF & MED, LAB, IMAGING UPDATES Patient continues to improve. Moving the left leg easier, some increase in ROM with the left shoulder but that is her most limiting pain. continues in sinus; bp low normal but better than yesterday. No new labs today. vitals reviewed. Urine culture growing gram neg rods - now on oral antibiotic Objective: appropriate. Vitals: see above Lungs: Clear. Cardiac: S1S2. MSK: left arm can be raised above her head but still has limited range of motion shoulder injection -subacromial space - LEFT patient consented to this procedure and we discussed R/B/A prepped in sterile fashion 1% lidocaine (4 cc), 40mg/cc Kenalog (2 cc), 0.25% Marcaine (4 cc) injected without complication or issue in the subacromial space patient tolerated the procedure well. Disposition/Potential discharge - Social work looking for short-term Total time is 35 minutes with greater than 50% spent in counseling and coordination of care. Exam Const: Vital Signs, click to edit/add: Vital Signs - 24 hr 01/21/23 11:30 01/21/23 15:00 01/21/23 15:00 Temperature 98.4 F 98.4 F Pulse Rate [Left A pical] 72 72 Pulse Rate [Pulse Oximeter] 72 59 L 59 L Respiratory Rate 20 18 18 Blood Pressure [Ri ght Arm] 108/68 108/70 Pulse Oximetry 95 91 Oxygen Delivery Me thod Room Air Room Air 01/21/23 19:00 01/21/23 23:55 01/21/23 23:55 Temperature 98.2 F 98.1 F Pulse Rate [Left A pical] 65 65 Pulse Rate [Pulse Oximeter] 78 65 65 Respiratory Rate 18 18 18 Blood Pressure [Ri ght Arm] 120/79 113/62 Pulse Oximetry 94 93 Oxygen Delivery Me thod Room Air Room Air 01/22/23 05:00 01/22/23 08:00 Temperature 97.7 F 98.3 F Pulse Rate [Left A pical] 64 Pulse Rate [Pulse Oximeter] 64 64 Respiratory Rate 18 18 Blood Pressure [Ri ght Arm] 129/71 110/66 Pulse Oximetry 95 95 Oxygen Delivery Me thod Room Air Room Air
--- NOTE | 2023-01-22 14:17 | PC.NURSE ---
Pt worked with PT and OT. Eval by Dr. Lopez. Please see eMar for BG levels and medications provided on day shift. Dr. Aguilar injected pt's left shoulder at bedside this afternoon, pt tolerated procedure well. Report will be provided to oncoming shift RN.
[2023-01-22] MEDS: ATORVASTATIN 10 MG TABLET 20 MG PO (20:27)
[2023-01-22] MEDS: METOPROLOL TARTRATE 25 MG TABLET PO (20:29)
--- NOTE | 2023-01-22 23:26 | PC.NURSE ---
End of Shift: Patient pleasant and cooperative. Afebrile. Rating pain in left arm 3/10. Denies need for PRN pain medication, ice pack applied. Up to bathroom and chair with SBA and walker. Tolerating regular diet with no nausea.
--- NOTE | 2023-01-23 06:45 | PC.NURSE ---
END OF SHIFT NOTE: PT PLEASANT AND COOPERATIVE. DENIES CP, SOB, N/V. AMBULATES WITH WALKER, GB, SBA. PT ON RESTFUL NIGHT VS. CALL LIGHT WITHIN PT?S REACH. PT AWAITING PLACEMENT.?
[2023-01-23 07:00] VITALS: BP 104/64; PULSE 67; RESP 18; RESP 20; TEMP 37.2; O2SAT 98
[2023-01-23] MEDS: AMOXICILLIN/CLAVULANATE 500 mg/125 mg TABLET PO ×2 (09:37→17:07)
[2023-01-23] MEDS: ENOXAPARIN 100 MG/ML INJ SUBCUT ×2 (09:37→21:05)
[2023-01-23] MEDS: GABAPENTIN 300 MG CAPSULE PO ×2 (09:38→21:06)
[2023-01-23] MEDS: METFORMIN ER 500 MG 1000 MG PO (09:38)
[2023-01-23] MEDS: METOPROLOL TARTRATE 25 MG TABLET PO ×2 (09:40→21:06)
[2023-01-23 11:00] VITALS: BP 112/72; PULSE 66; RESP 20; TEMP 36.8; O2SAT 95
--- NOTE | 2023-01-23 11:43 | PM.IMPN1 ---
Progress Note: A&P Assessment and plan (1) Fall: Problem details: Underlying unstable gait -diabetic neuropathy -likely resulted in rotator cuff strain/tear, other soft tissue (subacromial left shoulder injection 01/22/23) -injected left shoulder with kenalog/lido/marcaine in the subacromic space Status: Acute (2) Atrial flutter: Problem details: Sudden onset in the hospital, uncertain if new or paroxysmal - -likely related to trauma/UTI -converted on night 1 discontinued Cardizem drip -scheduled metoprolol BID. Lisinopril on hold. -on lovenox for DVT ppx. if she stays in sinus, we do not have start OAC Echo today: Final Impressions: 1. Normal LV size, not well visualized wall thickness, normal global systolic function with an estimated EF of 55 - 60%. 2. Technically limited exam. 3. Right ventricular cavity size is not well visualized, global systolic RV function is not well visualized. 4. The mitral valve is notable for MAC, trace mitral regurgitation. 5. The inferior vena cava is dilated, respiratory size variation greater than 50%. 6. Echo contrast was administrered to enhance visualization of all left ventricular segments. 7. The aortic sinus is dilated with a maximal diameter of 3.8 cm. Status: Acute (3) Closed head injury: Problem details: Status post fall in home Left parietal subgaleal hematoma. likely concussed - following clinically Status: Acute (4) UTI (urinary tract infection): Problem details: transitioned from rocephin to augmentin. pansensitive ECOLI Status: Acute (5) Chronic kidney disease: Problem details: at baseline Stage IIIb baseline creat 1.3-1.5 Status: Acute (6) Anemia in chronic kidney disease (CKD): Problem details: baseline hemoglobin 11.0-11.6 Status: Acute (7) Diabetes mellitus: Problem details: monotherapy with metformin SSI, ACHS glucose bedside finger sticks Status: Acute (8) Hypertension: Problem details: at discharge will resume lower dose of lisinopril and metoprolol 25mg bid Status: Acute (9) Diabetic polyneuropathy: Problem details: increases fall risk Status: Acute (10) Hyperparathyroidism, secondary renal: Status: Acute Subjective Date Seen: 01/23/23 Interval history: Daily Progress Note - Hospital Medicine Day #: 6 CC: AFIB RVR after a fall at home, immoblization and soft tissue injuries OVERNIGHT UPDATES FROM STAFF & MED, LAB, IMAGING UPDATES Patient continues to improve. Moving the left leg easier, some increase in ROM with the left shoulder but that is her most limiting pain. continues in sinus; bp low normal but better than yesterday. No new labs today. vitals reviewed. Urine culture growing gram neg rods - now on oral antibiotic Objective: appropriate. Vitals: see above Lungs: Clear. Cardiac: S1S2. MSK: left arm can be raised above her head but still has limited range of motion Her short term memory is definitely impaired above baseline; doesn't remember my name or details from my visit yesterday. scored on MOCA Disposition/Potential discharge - Social work looking for short-term Total time is 35 minutes with greater than 50% spent in counseling and coordination of care. Exam Const: Vital Signs, click to edit/add: Vital Signs - 24 hr 01/22/23 11:55 01/22/23 15:00 01/22/23 15:00 Temperature 98.3 F 98.0 F Pulse Rate [Left A pical] 70 68 68 Pulse Rate [Pulse Oximeter] 70 Respiratory Rate 20 18 18 Blood Pressure [Ri ght Arm] 107/78 111/63 Pulse Oximetry 95 96 Oxygen Delivery Me thod Room Air Room Air 01/22/23 19:00 01/22/23 21:21 01/22/23 23:00 Temperature 98.3 F Pulse Rate [Left A pical] Pulse Rate [Pulse Oximeter] 89 Respiratory Rate 18 18 18 Blood Pressure [Ri ght Arm] 118/68 Pulse Oximetry 97 Oxygen Delivery Me thod Room Air 01/23/23 07:00 01/23/23 07:00 01/23/23 11:00 Temperature 98.9 F 98.3 F Pulse Rate [Left A pical] 67 66 Pulse Rate [Pulse Oximeter] 67 Respiratory Rate 18 20 20 Blood Pressure [Ri ght Arm] 104/64 112/72 Pulse Oximetry 98 95 Oxygen Delivery Me thod Room Air Room Air
--- NOTE | 2023-01-23 13:31 | PC.NURSE ---
End of Shift Note: Patient has been up and ambulating with PT. Has been sitting in the recliner most of this shift. Offers no complaints of pain. Does not have much for an appetite today. Will continue to monitor.
--- NOTE | 2023-01-23 13:58 | PC.SOCIAL ---
Addendum entered by ROMELIA Mckay 01/23/23 14:38: Peer to peer appeal completed pt. was authorized coverage for 1 week of rehab at a SNF. Pt. will admit to the [facility] tomorrow. Pt. and family were updated. Original Note: Pt. was denied coverage for SNF stay and will discharge home with outpatient therapy. Updated pt.'s son Asim, unable to reach spouse.
[2023-01-23 15:00] VITALS: BP 117/69; PULSE 64; RESP 18; TEMP 36.9; O2SAT 95
--- NOTE | 2023-01-23 17:15 | PC.NURSE ---
PATIENT PLEASANT AND COOPERATIVE, NO INSULIN NEEDED AT SUPPER TIME PER SLIDING SCALE PROTOCOL, MINIMAL AMOUNT OF PAIN TO LEFT SHOULDER ICE APPLIED AND DECLINING NEED FOR ANY OTHER INTERVENTIONS, TOELRATING REGULAR DIET.
[2023-01-23 19:00] VITALS: BP 116/63; PULSE 80; RESP 18; TEMP 36.6; O2SAT 96
[2023-01-23] MEDS: ATORVASTATIN 10 MG TABLET 20 MG PO (21:05)
[2023-01-23] MEDS: ACETAMINOPHEN 325 MG TABLET 650 MG PO (21:07)
[2023-01-23 23:45] VITALS: RESP 20
[2023-01-24 05:24] VITALS: RESP 18
--- NOTE | 2023-01-24 05:27 | PC.NURSE ---
END OF SHIFT NOTE: RESTFUL NIGHT VS. PT SLEPT IN RECLINER. AMBULATES WITH WALKER, SBA. PT TO DC TO [facility] TODAY 01/24. UNEVENTFUL NIGHT. CALL LIGHT WITHIN PT?S REACH.?
[2023-01-24 08:00] VITALS: BP 107/84; PULSE 129; RESP 20; TEMP 36.4; O2SAT 97
[2023-01-24 08:01] VITALS: BP 107/84; PULSE 129; RESP 20; TEMP 36.4
[2023-01-24 08:07] VITALS: BP 107/66; PULSE 67; RESP 18; TEMP 36.6
[2023-01-24] MEDS: AMOXICILLIN/CLAVULANATE 500 mg/125 mg TABLET PO (08:45)
[2023-01-24] MEDS: METFORMIN ER 500 MG 1000 MG PO (08:45)
[2023-01-24] MEDS: GABAPENTIN 300 MG CAPSULE PO (08:45)
[2023-01-24] MEDS: ENOXAPARIN 100 MG/ML INJ SUBCUT (08:45)
[2023-01-24] MEDS: METOPROLOL TARTRATE 25 MG TABLET PO (08:45)
[2023-01-24] MEDS: ACETAMINOPHEN 325 MG TABLET 650 MG PO (08:51)
--- NOTE | 2023-01-24 11:58 | P.DS_ITS ---
DS: Providers Provider Date Seen: 01/24/23 Date of admission: 01/18/23 23:05 Primary care physician: Gale Latham PA-C Admitting Clinician: Anthony Garcia MD Consults: 01/18/23 23:05 Consult to Occupational Therapy [CONS] Routine Comment: Reason(s) for OT Consult:: Evaluate and Treat Any Restrictions?:: No Restrictions Consult to Physical Therapy [CONS] Routine Comment: Reason(s) for PT Consult:: Evaluate and Treat Any Restrictions?:: No Restrictions 01/19/23 04:27 Consult to Occupational Therapy [CONS] Routine Comment: Reason(s) for OT Consult:: Difficulty Managing ADLs Any Restrictions?:: See Comment Comment: SLING TO LEFT ARM Attending Physician on discharge: [facility]: 01/[facility]23 DS: Diagnosis Discharge Diagnosis (1) Fall: Status: Acute Problem details: Underlying unstable gait -diabetic neuropathy -likely resulted in rotator cuff strain/tear, other soft tissue (subacromial left shoulder injection 01/22/23) -injected left shoulder with kenalog/lido/marcaine in the subacromic space (2) Closed head injury: Status: Acute Problem details: Status post fall in home Left parietal subgaleal hematoma. likely concussed - following clinically (3) Atrial flutter: Status: Acute Problem details: Sudden onset in the hospital, uncertain if new or paroxysmal - -likely related to trauma/UTI -converted on night 1 discontinued Cardizem drip -scheduled metoprolol BID. Lisinopril on hold. -on lovenox for DVT ppx. if she stays in sinus, we do not have start OAC Echo today: Final Impressions: 1. Normal LV size, not well visualized wall thickness, normal global systolic function with an estimated EF of 55 - 60%. 2. Technically limited exam. 3. Right ventricular cavity size is not well visualized, global systolic RV function is not well visualized. 4. The mitral valve is notable for MAC, trace mitral regurgitation. 5. The inferior vena cava is dilated, respiratory size variation greater than 50%. 6. Echo contrast was administrered to enhance visualization of all left ventricular segments. 7. The aortic sinus is dilated with a maximal diameter of 3.8 cm. (4) Diabetic polyneuropathy: Status: Acute Problem details: increases fall risk (5) Hypertension: Status: Acute Problem details: at discharge will resume lower dose of lisinopril and metoprolol 12.5mg bid (6) UTI (urinary tract infection): Status: Acute Problem details: transitioned from rocephin to augmentin. pansensitive ECOLI (7) Diabetes mellitus: Status: Acute Problem details: monotherapy with metformin SSI, ACHS glucose bedside finger sticks (8) Anemia in chronic kidney disease (CKD): Status: Acute Problem details: baseline hemoglobin 11.0-11.6 (9) Chronic kidney disease: Status: Acute Problem details: at baseline Stage IIIb baseline creat 1.3-1.5 DS: Summary Hospital Course Hospital Course: HOSPITALIST DISCHARGE SUMMARY ATTENDING PHYSICIAN: Brenda Lopez MD FINAL DIAGNOSIS: Fall at home with extended time on the floor Subgaleal hemorrhage Concussion Diabetic peripheral neuropathy Acute a flutter with RVR, resolved HOSPITAL FOLLOWUP ISSUES: PCP after TCU stay REFERRALS WHILE ADMITTED: PT and OT REFERRALS AFTER DISCHARGE: None BRIEF HOSPITAL COURSE: Priti is a 67-year-old female with significant diabetic peripheral neuropathy and gait disturbance who fell at home. She suffered a subgaleal hemorrhage, concussion, bumps and bruises. I performed a left subacromial shoulder injection with cortisone - she may have She also presented in a flutter with RVR which would be a new diagnosis for her. The a flutter resolved within the 1st 24 hours converting to sinus rhythm. Her concussion did get better every day but she was suffering from significant memory loss and motor incoordination. She was also diagnosed with the UTI, pansensitive E coli. Her acute issues were resolved and she transferred downstairs to the [facility] for acute rehab. SUBSTANTIVE NOTATIONS ON IMAGING, LAB, MICROBIOLOGY/PATHOLOGY STUDIES: Head CT 1. No acute intracranial hemorrhage or mass effect. 2. Left parietal subgaleal hematoma. No calvarial fracture. Urine Culture: Ecoli DISCHARGE MEDICATIONS: See Reconciled list - SIGNIFICANT CHANGES: decreased lisinopril dosing (20 to 10) started [id number] BID REVIEW OF SYSTEMS No new chest pain or dyspnea Pain controlled No voiding difficulties Tolerating diet challenge PHYSICAL EXAM: CONSTITUTIONAL: VITAL SIGNS: see record. HEENT: Normocephalic, atraumatic. PERRL, EOMI, conjunctivae pink, no scleral icterus. Ears and nose externally normal. Pharynx normal. NECK: No JVD. No carotid bruit, no thyromegaly, no adenopathy. CHEST: Clear to auscultation bilaterally. HEART: S1 and S2 normal. Edema ABDOMEN: Soft, nontender. Normal bowel sounds. MUSCULOSKELETAL: No gross joint deformity or swelling. NEURO: Cranial nerves intact. Grossly intact. No asymmetric findings. SKIN: No rashes, petechiae, concerning changes PSYCHIATRIC: Mood euthymic. DISPOSITION: TCU -[facility] ([facility]) Time spent on discharge 37 minutes. Status at Discharge Functional status at discharge: uses cane/walker Overall status at discharge: patient is progressing back to baseline Time Spent with Patient Time attestation: Total time spent providing and/or coordinating discharge services: Time spent: Greater than 30 minutes Exam Const: Vital Signs, click to edit/add: Vital Signs - 24 hr 01/23/23 15:00 01/23/23 19:00 01/23/23 23:45 Temperature 98.4 F 97.8 F Pulse Rate Pulse Rate [Left A pical] 64 Pulse Rate [Pulse Oximeter] 80 Respiratory Rate 18 18 20 Blood Pressure Blood Pressure [Ri ght Arm] 117/69 116/63 Pulse Oximetry 95 96 Oxygen Delivery Me thod Room Air Room Air 01/23/23 23:45 01/24/23 05:24 01/24/23 08:00 Temperature 97.6 F Pulse Rate Pulse Rate [Left A pical] Pulse Rate [Pulse Oximeter] 129 H Respiratory Rate 20 18 20 Blood Pressure Blood Pressure [Ri ght Arm] 107/84 Pulse Oximetry 97 Oxygen Delivery Me thod Room Air 01/24/23 08:01 01/24/23 08:07 Temperature 97.6 F 97.8 F Pulse Rate 129 H 67 Pulse Rate [Left A pical] Pulse Rate [Pulse Oximeter] Respiratory Rate 20 18 Blood Pressure 107/84 107/66 Blood Pressure [Ri ght Arm] Pulse Oximetry Oxygen Delivery Me thod Discharge Plan Discharge Disposition: [facility] Date of Admission: 01/18/23 23:05 Attending Provider on Discharge: Brenda Lopez Primary Care Provider: Gale Latham Condition: Stable Discharge Medications: New tramadol 50 mg Tablet 50 mg PO Q6H PRNQty: 30 0RF metoprolol tartrate 25 mg tablet 12.5 mg PO BID Qty: 90 3RF amoxicillin-pot clavulanate [Augmentin] 500-125 mg tablet 1 tab PO BID Qty: 3 0RF Continued gabapentin 300 mg capsule 300 mg PO HS atorvastatin 20 mg tablet 20 mg PO HS acetaminophen 500 mg tablet 500 mg PO Q6H PRN Hold Instructions: Resume on 01/21/23. metformin 500 mg tablet 1,000 mg PO BIDWM Changed lisinopril 20 mg tablet 10 mg PO DAILY Qty: 30 0RF aspirin 81 mg tablet,delayed release (DR/EC) 81 mg PO DAILY Qty: 90 0RF Discharge Orders: Discharge Order (Routine); Ordered 01/24/23 Ordered By: Brenda Lopez Additional Instructions: As the discharge to [facility] was delayed b/c of insurance approval; She now only needs three more doses of the augmentin for her UTI. PM of 01/24, and BID on 01/25. Blood pressure regimen: metoprolol 12.5mg BID and lisinopril 10mg daily Activity Level: Activity as Tolerated Discharge Diet: Regular Follow Up Appointments: [facility] [Outside] (Patient being discharged to [facility].) Gale Latham PA-C [Primary Care Provider] - Admit to: SNF Discharge Potential: Fair Length of Stay: <30 days Can use facility standing orders?: Yes Code Status: Full Code Rehab Potential: Good Therapy: Physical Therapy and Occupational Therapy Therapy Orders: Evaluate and Treat Oxygen: No Urinary Catheter: No Orders are good >30 days: Yes
== END 2023-01-24 10:10 | DRG 89 ==
LOC: ED 22:03 → MEDSURG 22:30
PROVIDERS: Family Medicine; Admitting Provider Internal Medicine; Emergency Provider Student in an Organized Health Care Education/Training Program; PCP Physician Assistant Medical; Visit Provider Internal Medicine
DX: S06.0X9A Concussion with loss of consciousness of unspecified duration, initial encounter (principal); I47.1 Supraventricular tachycardia; N25.81 Secondary hyperparathyroidism of renal origin; I48.92 Unspecified atrial flutter; N39.0 Urinary tract infection, site not specified; W01.0XXA Fall on same level from slipping, tripping and stumbling without subsequent striking against object, initial encounter; Y92.094 Garage of other non-institutional residence as the place of occurrence of the external cause; R41.3 Other amnesia; M25.562 Pain in left knee; M25.512 Pain in left shoulder; S46.012A Strain of muscle(s) and tendon(s) of the rotator cuff of left shoulder, initial encounter; I12.9 Hypertensive chronic kidney disease with stage 1 through stage 4 chronic kidney disease, or unspecified chronic kidney disease; E11.22 Type 2 diabetes mellitus with diabetic chronic kidney disease; N18.32 Chronic kidney disease, stage 3b; D63.1 Anemia in chronic kidney disease; E66.9 Obesity, unspecified; E78.5 Hyperlipidemia, unspecified; E11.42 Type 2 diabetes mellitus with diabetic polyneuropathy; R26.89 Other abnormalities of gait and mobility; B96.20 Unspecified Escherichia coli [E. coli] as the cause of diseases classified elsewhere
CPT/HCPCS: 36415; 70450; 71046; 72125; 73030; 73080; 73140; 73502; 73562; 80048; 80053; 81001; 82550; 82803; 82962; 83605; 83735; 83880; 84100; 84443; 84484; 85025; 85027; 86140; 87086; 87186; 93005; 93306; 94761; 97110; 97112; 97116; 97161; 97165; 97530; 97535; 99283; 99285; 99291; A9270; G0390; J0153; J0696; J1650; J2270; J3301; J3490; J7120; S0020

== ENCOUNTER 2023-01-24 09:10 | Inpatient (IN) | payer MEDICARE, SELFPAY ==
[2023-01-24 09:43] VITALS: BMI 44.2
[2023-01-24 10:51] VITALS: TEMP 36; O2SAT 97
[2023-01-24 10:54] VITALS: BP 101/70; PULSE 116; RESP 18; TEMP 36; O2SAT 97
--- NOTE | 2023-01-24 11:10 | LTC.ADM ---
LTC Admission Note: o Admit from:Med/Surg o Mode of transport: Wheel chair o Accompanied by: Med/Surg Staff o Transferred via: Wheel chair to walker o Admitting dx: Concussion, Atrial flutter. (for rehab) o Mentation: Alert o Vital Signs:Temp 96.8, P116, BP 101/70 & R18 o Lung sounds:Clear o Overall condition: Good o Pain: No pain at present. Had pain when she was admitted on her left shoulder o Mood/Behavior: Pleasant o Wound care: No external wound o Assistance level with ADL?s: 1 Asst with 4W walker o Mobility: Able to walk with assist o Eating: Regular
[2023-01-24 11:16] LABS: SARS PCR* Negative SARS-CoV-2 (Negative)
--- NOTE | 2023-01-24 13:37 | PC.NURSE ---
Admission : Resident came to the unit from Med/[facility] in wheel chair. Very pleasant, forgetful at times due to her concussion. Resident is on diabetic diet. Her Accu check this morning in Med /Surg was 134. She is on enhance contact precaution for 10 days. Her Covid results day 1 was negative. She is hard on hearing on her left ear and is sensitive to light and would like her room light switched off. No dentures. All orders have been verified and acknowledge.
[2023-01-24 15:56] VITALS: BP 107/72; PULSE 72; RESP 16; TEMP 36.9; O2SAT 90
[2023-01-24] MEDS: AMOXICILLIN/CLAVULANATE 500 mg/125 mg TABLET PO (20:11)
[2023-01-24] MEDS: METFORMIN 500 MG TABLET 1000 MG PO (20:13)
[2023-01-24] MEDS: METOPROLOL TARTRATE 25 MG TABLET 12.5 MG PO (20:13)
[2023-01-24] MEDS: ATORVASTATIN CALCIUM 20 MG TABLET PO (20:13)
[2023-01-24] MEDS: GABAPENTIN 300 MG CAPSULE PO (20:14)
--- NOTE | 2023-01-24 20:49 | PC.NURSE ---
MEDICARE ADMISSION: Resident was admitted today from [facility] for closed head injury/concussion. Qualifying hospital stay was 01/18-01/24/23. Today will be the first day of coverage. Resident and were notified of this coverage due to skilled therapy needs. Resident will receive PT/OT 5x per week until goals are met. Nursing will provide ongoing monitoring, assistance with ADLs, and medication administration.
--- NOTE | 2023-01-24 21:49 | PC.NURSE ---
Resident self transfers x 3 despite repeated education/reminders to use call light to ask for assistance. Resident sleeping in recliner w/chair alarm activated.
[2023-01-24 23:13] VITALS: BP 110/69; PULSE 68; RESP 18; TEMP 36.6; O2SAT 96
--- NOTE | 2023-01-25 04:47 | PC.NURSE ---
Resident is pleasant, no complain of pain, slept most of the night in recliner , Prefer not to disrupt night time. She did self transfer to bathroom. Provided education to use call light for assistance. First Mantoux given at let forearm. VSS as follows: BP 110/69, Temp 97.9, RR 18, HR 68 regular, O2 sat 96% RA.
[2023-01-25] MEDS: ASPIRIN 81 MG TABLET EC PO (07:44)
[2023-01-25] MEDS: AMOXICILLIN/CLAVULANATE 500 mg/125 mg TABLET PO ×2 (07:44→15:36)
[2023-01-25] MEDS: METOPROLOL TARTRATE 25 MG TABLET 12.5 MG PO ×2 (07:45→15:36)
[2023-01-25] MEDS: METFORMIN 500 MG TABLET 1000 MG PO ×2 (07:45→15:36)
[2023-01-25] MEDS: lisinopriL 10 MG TABLET PO (07:45)
[2023-01-25 13:17] VITALS: BP 111/70; PULSE 70; RESP 18; TEMP 36.2; O2SAT 97
--- NOTE | 2023-01-25 13:23 | LTC.MNEURO ---
LTC Medicare Neuro Note: o Admission diagnosis:Head injury (concussion) with no open injury o Daily VS: T 97.2, P70, BP 111/70, 18 R and O2 97% (RA) o LOC: Alert o Vision (change, pupil size/reaction):Reactive and equal o Movement/weakness:No weakness. Able to ambulate using walker o Seizure activity: No o PT/OT/Nursinx /week until goals are met o Goals for discharge: Return to community
[2023-01-25 17:00] VITALS: BP 128/81; PULSE 65; RESP 18; TEMP 36.4; O2SAT 100
[2023-01-25] MEDS: ATORVASTATIN CALCIUM 20 MG TABLET PO (19:54)
[2023-01-25] MEDS: GABAPENTIN 300 MG CAPSULE PO (19:55)
[2023-01-25 21:00] VITALS: BP 122/73; PULSE 72; RESP 18; TEMP 36.4; O2SAT 95
[2023-01-26 01:00] VITALS: BP 115/69; PULSE 68; RESP 18; TEMP 36.6; O2SAT 96
[2023-01-26] MEDS: METOPROLOL TARTRATE 25 MG TABLET 12.5 MG PO ×2 (07:43→15:47)
[2023-01-26] MEDS: METFORMIN 500 MG TABLET 1000 MG PO ×2 (07:43→15:47)
[2023-01-26] MEDS: ASPIRIN 81 MG TABLET EC PO (07:43)
[2023-01-26] MEDS: lisinopriL 10 MG TABLET PO (07:43)
[2023-01-26 11:07] VITALS: BP 100/60; PULSE 69; RESP 18; TEMP 36.2; O2SAT 97
--- NOTE | 2023-01-26 12:54 | PC.NURSE ---
LT Medicare Neuro Note: o Admission diagnosis:Head injury (concussion) with no open injury o Daily VS: T 97.5, P69, BP 110/60, 18 R and O2 98% (RA) o LOC: Alert o Vision (change, pupil size/reaction):No headache, vision good. Reactive and equal o Movement/weakness:No weakness. Able to self transfer using walker o Seizure activity: No o PT/OT/Nursinx /week until goals are met o Goals for discharge: Return to community .Resident is very anxious to go home.
[2023-01-26 13:42] VITALS: BP 100/60; PULSE 69; RESP 18; TEMP 36.4; O2SAT 98
[2023-01-26] MEDS: GABAPENTIN 300 MG CAPSULE PO (19:51)
[2023-01-26] MEDS: ATORVASTATIN CALCIUM 20 MG TABLET PO (19:51)
[2023-01-26 21:02] VITALS: TEMP 36.7
[2023-01-26] MEDS: ACETAMINOPHEN 500 MG TABLET PO (21:02)
[2023-01-26 22:22] VITALS: TEMP 36.7
[2023-01-27] MEDS: ASPIRIN 81 MG TABLET EC PO (07:34)
[2023-01-27] MEDS: lisinopriL 10 MG TABLET PO (07:35)
[2023-01-27] MEDS: METFORMIN 500 MG TABLET 1000 MG PO ×2 (07:35→16:59)
[2023-01-27] MEDS: METOPROLOL TARTRATE 25 MG TABLET 12.5 MG PO ×2 (07:35→16:59)
--- NOTE | 2023-01-27 10:15 | PC.NURSE ---
Addendum entered by Narcisa Vang 01/27/23 13:08: Results from Covid test are negative. Original Note: Covid: Resident tested for COVID day three. Results pending.
[2023-01-27 10:31] VITALS: BP 91/52; PULSE 72; RESP 18; TEMP 36.6; O2SAT 96
--- NOTE | 2023-01-27 10:32 | PC.NURSE ---
LTC Medicare Neuro Note: o Admission diagnosis: Closed head injury after a fall o Daily VS: 91/52, Pulse 72, Resp 18, Temp 97.8, SPO2 96% o LOC: Alert and oriented o Vision (change, pupil size/reaction): SINDY o Movement/weakness: none noted o Seizure activity: none o PT/OT/Nursing: PT and OT 5x/week until goals are met o Goals for discharge: return to community
[2023-01-27 10:46] LABS: SARS PCR* Negative SARS-CoV-2 (Negative)
--- NOTE | 2023-01-27 10:52 | PC.NURSE ---
Lab note: Routine Covid test completed today noted to have negative result.
--- NOTE | 2023-01-27 11:17 | PC.NURSE ---
[facility] location called this morning to request that when resident is ready to discharge her orders be faxed to [facility] so current orders will be available for PCP. ROS and ALCIDES notified.
[2023-01-27] MEDS: GABAPENTIN 300 MG CAPSULE PO (19:50)
[2023-01-27] MEDS: ATORVASTATIN CALCIUM 20 MG TABLET PO (19:50)
[2023-01-28] MEDS: METFORMIN 500 MG TABLET 1000 MG PO ×2 (08:09→16:02)
[2023-01-28] MEDS: METOPROLOL TARTRATE 25 MG TABLET 12.5 MG PO ×2 (08:09→16:02)
[2023-01-28] MEDS: lisinopriL 10 MG TABLET PO (08:09)
[2023-01-28] MEDS: ASPIRIN 81 MG TABLET EC PO (08:09)
[2023-01-28 10:49] VITALS: BP 100/60; PULSE 60; RESP 18; TEMP 36.3; O2SAT 97
--- NOTE | 2023-01-28 10:51 | PC.NURSE ---
TC Medicare Neuro Note: o Admission diagnosis: Concussion (Closed head injury) after a fall o Daily VS: T 97.4, P 60, BP 100/60, Resp 18, and SPO2 97% o LOC: Alert and oriented .No headache o Vision (change, pupil size/reaction): SINDY o Movement/weakness: No weakness, able to ambulate by herself. o Seizure activity: None. o PT/OT/Nursing: PT and OT 5x/week until goals are met o Goals for discharge: return to community
--- NOTE | 2023-01-28 12:29 | PC.NURSE ---
Cert visit note: Resident seen by HETAL Ortiz for cert visit. Orders reviewed. Per ENGINE BOSS, discontinue PRN Tramadol.
[2023-01-28 15:00] VITALS: BP 115/73; PULSE 66; RESP 18; TEMP 36.1; O2SAT 96; BMI 43.5
--- NOTE | 2023-01-28 15:47 | PC.SOCIAL ---
Care Conference held in resident's room at 1:00 pm. Resident's Scott attended in person. Updates from Nursing, Nutrition, therapy, and social work. Therapy will end on and resident will discharge at 10:30 am on Friday. Therapy is not recommending in home therapy. will product picker upon discharge. Resident's mood is stable. No social work concerns.
--- NOTE | 2023-01-28 16:04 | PC.NURSE ---
CARE CONFERENCE: Care conference meeting held with resident, her , software implementation project manager, social work, and nursing. Resident's spouse was in attendance. Therapies were unable to attend care conference today, but have reported that Naty has made good progress to return home and does not meet criteria for in-home therapies. Reviewed reason for resident's admission (PT/OT after fall at home) and progress made as reported by therapy. Informed Naty that her rehab wound end on 01/30 and she was given the option to pay privately after that. NOMNC was reviewed, signed, and given to resident. Resident notes that she would like to plan to discharge home on 01/31. Resident will be transported home by spouse around 1030am on Friday. RN recommended to resident and spouse to look into life alert button in case she has another fall and her spouse is not home. Recommend Naty make appointment with primary care provider to be seen within 7-14 days after discharge home. Instructions for resident will be included on DC paperwork. Resident and spouse confirm understanding and plan for DC on 01/31 at 1030.
[2023-01-28] MEDS: ATORVASTATIN CALCIUM 20 MG TABLET PO (19:54)
[2023-01-28] MEDS: GABAPENTIN 300 MG CAPSULE PO (19:54)
[2023-01-29] MEDS: lisinopriL 10 MG TABLET PO (07:44)
[2023-01-29] MEDS: ASPIRIN 81 MG TABLET EC PO (07:44)
[2023-01-29] MEDS: METFORMIN 500 MG TABLET 1000 MG PO ×2 (07:44→15:32)
[2023-01-29] MEDS: METOPROLOL TARTRATE 25 MG TABLET 12.5 MG PO ×2 (07:44→15:32)
--- NOTE | 2023-01-29 08:27 | PC.NURSE ---
Lab note: Covid Day 5 test completed per admit protocol and brought to lab with result pending at this time. Resident will be informed if test result is positive.
[2023-01-29 09:17] LABS: SARS PCR* Negative SARS-CoV-2 (Negative)
[2023-01-29 09:32] VITALS: BP 100/64; PULSE 69; RESP 18; TEMP 36.4; O2SAT 97
--- NOTE | 2023-01-29 09:43 | PC.NURSE ---
Lab note: Negative Covid result received from today's Covid test completed.
--- NOTE | 2023-01-29 10:34 | PC.NURSE ---
01/29/23 10:35 - Nurse Note by Bozena Gustafson RN Acct Num: [id number] : 1955 Patient Age: 67 TC Medicare Neuro Note: o Admission diagnosis: Concussion (Closed head injury) after a fall o Daily VS: T 97.6, P 69, BP 100/64, Resp 18, and SPO2 97% o LOC: Alert and oriented .No headache o Vision (change, pupil size/reaction): PERRLA o Movement/weakness: No weakness, able to ambulate by herself. o Seizure activity: None. o PT/OT/Nursing: PT and OT 5x/week until goals are met o Goals for discharge: Plan for discharge on Friday at 1030
[2023-01-29 14:29] VITALS: BMI 43.5
--- NOTE | 2023-01-29 16:06 | PC.SPIRITC ---
I provided visit for support.
--- NOTE | 2023-01-29 16:11 | PC.SPIRITC ---
I provided visit for support and connection.
--- NOTE | 2023-01-29 16:35 | PC.NURSE ---
Bath Status: Weekly Bath assessment task was completed yesterday, 01/28/23 the day of the week listed under 'BATH LIST.'
[2023-01-29] MEDS: ATORVASTATIN CALCIUM 20 MG TABLET PO (19:46)
[2023-01-29] MEDS: GABAPENTIN 300 MG CAPSULE PO (19:46)
--- NOTE | 2023-01-30 06:20 | PC.NURSE ---
WEEKLY CHARTING-WEEK 4 Weekly Charting week 4: Vitals signs reviewed with no concerns. Baseline and temporary care plan reviewed. Baseline care plan update discontinue chair alarm at night. Nothing added to Temporary care plan. No documented behavior since admission date. Not on any Psychotropic medication. Resident is alert and oriented with forgetful. Able to communicate needs verbally. Has hearing impairment, use Left hearing aid. Vision is adequate, use reading glasses only. All medications are administered by licensed nurse with no adverse reactions noted. Health conditions improving. Resident has plan to discharge Friday.
--- NOTE | 2023-01-30 06:21 | PC.NURSE ---
WEEKLY CHARTING -WEEK 4 :Communication,Hearing/Vision, Cognition/Behaviors,& Clinical Monitoring Vitals signs reviewed with no concerns.Resident is for short term stay for therapy. Baseline care plan reviewed with update for discontinuation of her chair alarm at night. Nothing added to Temporary care plan. Resident has no behavior issue since admission, very pleasant personality. She is not on any Psychotropic medication.Resident is alert and oriented. Able to communicate needs verbally. Has hearing impairment on her left ear and currently using hearing aid on left side, however she is able to hear on her right. Vision is adequate, use reading glasses only. All medications are administered by licensed nurse with no adverse reactions noted. PT/OT are conducted daily X 5/week and her mobility and condition has improved. Resident is currently for discharge on 01/31/23Friday.
[2023-01-30 07:00] VITALS: BP 91/57; PULSE 63; RESP 18; TEMP 36.6; O2SAT 98
[2023-01-30] MEDS: ASPIRIN 81 MG TABLET EC PO (08:19)
[2023-01-30] MEDS: METOPROLOL TARTRATE 25 MG TABLET 12.5 MG PO ×2 (08:20→15:29)
[2023-01-30] MEDS: lisinopriL 10 MG TABLET PO (08:20)
[2023-01-30] MEDS: METFORMIN 500 MG TABLET 1000 MG PO ×2 (08:20→15:29)
[2023-01-30 13:11] VITALS: RESP 18; TEMP 36.4
--- NOTE | 2023-01-30 13:17 | PC.NURSE ---
Medicare Charting: Naty was admitted to [facility] due to a closed head injury.Vital signs are stable . T-97.8,P-63, R-18,B/P-91/57 and O2sats -98 on RA. Alert and orientated. eliseon-DESMOND, observed to be strong and able to move about on her own. No seizure activity noted. Her last PT/OT will be today because she is discharging tomorrow morning around 7am.
[2023-01-30] MEDS: GABAPENTIN 300 MG CAPSULE PO (19:12)
[2023-01-30] MEDS: ATORVASTATIN CALCIUM 20 MG TABLET PO (19:12)
[2023-01-31] MEDS: METFORMIN 500 MG TABLET 1000 MG PO (07:46)
[2023-01-31] MEDS: ASPIRIN 81 MG TABLET EC PO (07:46)
[2023-01-31] MEDS: lisinopriL 10 MG TABLET PO (07:46)
[2023-01-31] MEDS: METOPROLOL TARTRATE 25 MG TABLET 12.5 MG PO (07:46)
--- NOTE | 2023-01-31 11:06 | PC.NURSE ---
Discharge note: Resident was discharged to home at 1100 today (ambulating) accompanied by . Resident was send with all medications per discharge order. Medicare medication credit form was fax to [facility].
--- NOTE | 2023-01-31 11:22 | PC.NURSE ---
RECAPITULATION NOTE: Resident admitted on 01.24.23 after hospitalization for fall at home. During fall she incurred a concussion, left shoulder injury (rotator cuff tear) and subarachnal hematoma. 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 She was discharged from therapies on 01/30/23 and discharged home with her spouse on 01/31/23. Therapies stated that patient did not require any in-home care services. Resident was sent home with remaining supply of medications. No narcotics sent with resident. Catering Attendant reviewed DC plan with resident and both resident and RN signed confirmation of understanding. Discharge information was faxed to her primary care provider, MEHUL Huerta with confirmed success. Resident aware that she should follow up with PCP in 7-14 days. All questions answered.
--- NOTE | 2023-02-06 21:21 | PC.NURSE ---
MDS CLARIFICATION: Discrepancies suspected in [facility] charting. Staff were interviewed for clarification. Loc on and off unit: resident required staff supervision per staff report. Coded as such.
--- NOTE | 2023-02-07 22:04 | PC.NURSE ---
CAAS: not completed as resident discharged the day after admission BABATUNDE date.
== END 2023-01-31 09:30 | disposition home or self-care (01) | DRG 914 ==
PROVIDERS: Family Medicine; Admitting Provider Family Medicine; Family Provider Nurse Practitioner Gerontology; PCP Physician Assistant Medical; Visit Provider Family Medicine
DX: S09.90XS Unspecified injury of head, sequela (principal); N25.81 Secondary hyperparathyroidism of renal origin; N39.0 Urinary tract infection, site not specified; N18.9 Chronic kidney disease, unspecified; E11.9 Type 2 diabetes mellitus without complications; I10 Essential (primary) hypertension; E11.42 Type 2 diabetes mellitus with diabetic polyneuropathy
CPT/HCPCS: 87635; 97110; 97112; 97116; 97161; 97165; 97535

== ENCOUNTER 2023-08-28 10:15 | Emergency (ER) | payer OTHER, SELFPAY ==
[2023-08-28] VITALS (20 sets, daily range): BP systolic 113–140; BP diastolic 64–86; PULSE 97–121; RESP 14–18; TEMP 37.3–38.6; O2SAT 87–99; BMI 42.0
--- NOTE | 2023-08-28 10:39 | XR_ITS ---
Patient: MEGHAN PERALES Facility:?[facility] Patient ID:?[id number] Site Patient ID:?[id number]. Site :?[id number] Study:?XRay-Chest -08/28/2023 11:20:08 AM Ordering Physician:JACLYN Final Report: INDICATION: Weakness and confusion. COMPARISON: None TECHNIQUE: Two views of the chest were acquired FINDINGS: TUBES AND LINES: None. HEART AND MEDIASTINUM: The heart size is normal. The mediastinal contour appears normal for patient age. LUNGS AND PLEURAL SPACES: Vascular and interstitial prominence likely representing mild interstitial edema/CHF.No focal consolidation. Normal pleural spaces OSSEOUS STRUCTURES: Age-appropriate appearance. No acute focal finding.Right shoulder arthroplasty. IMPRESSION: Abnormal findings likely related to mild interstitial edema/CHF. No focal consolidation. Normal pleural spaces. Dictated by Joby Zaragoza MD @ 08/28/2023 11:32:42 AM Signed by:?Joby Zaragoza MD @08/28/2023 11:32:42 AM (Electronic Signature)
--- NOTE | 2023-08-28 10:41 | ED_ITS ---
HPI - Weakness General Time Seen by Provider: 10:28 Date Seen: 08/28/23 Chief complaint: Weakness Stated complaint: Confusion Time Seen by Provider: 08/28/23 10:26 Source: patient, family, EMS, RN notes reviewed and old records reviewed Mode of arrival: EMS Limitations: no limitations History of Present Illness HPI Narrative: 68-year-old female who comes in with generalized weakness today, also some confusion which is been ongoing problem. Spouse provides additional history does. Patient apparently has been having increasing confusion and weakness for the past month or so, however worse today specially with regard to weakness. Patient rolled off the couch yesterday, no injuries and was able to get up off the floor with assistance but this morning, patient's spouse were unable to get patient up out of bed to weakness. Patient self complains just of not feeling well and weak. Denies cough, chest pain, shortness of breath, chills, nausea, vomiting. Did have some diarrhea 2 days ago but that is resolved and other family members had similar. No blood in the stools at that time. Denies abdominal pain. Does have some pain in the left knee but that is chronic, no new pain in the lower extremities. Related Data Home Medications Medication Instructions Recorded Confirmed acetaminophen 500 mg tablet 500 mg PO Q6H PRN left shoulder 02/19/22 05/06/23 pain atorvastatin 20 mg tablet 20 mg PO HS 02/19/22 05/06/23 gabapentin 300 mg capsule 300 mg PO HS 02/19/22 05/06/23 metformin 500 mg tablet 1,000 mg PO BIDWM 01/19/23 05/06/23 lisinopril 10 mg tablet 10 mg PO DAILY 01/30/23 05/06/23 Previous Rx's Medication Instructions Recorded metoprolol tartrate 25 mg tablet 12.5 mg (1/2 x 25 mg) PO BID #90 01/21/23 tabs aspirin 81 mg tablet,delayed 81 mg PO DAILY #90 tabs 01/24/23 release Allergies Allergy/AdvReac Type Severity Reaction Status Date / Time fexofenadine AdvReac Intermediate Headache Verified 05/06/23 13:36 loratadine AdvReac Intermediate Headache Verified 05/06/23 13:36 Sulfa (Sulfonamide AdvReac Gastrointestinal Verified 05/06/23 13:36 Antibiotics) Upset [facility] Medical History (Updated 08/28/23 @ 16:06 by Manish Álvarez MD) Fall ?W19.XXXA - Unspecified fall, initial encounter (ICD-10) Hypertension ?I10 - Essential (primary) hypertension (ICD-10) Diabetic polyneuropathy ?E11.42 - Type 2 diabetes mellitus with diabetic polyneuropathy (ICD-10) Diabetes mellitus ?E11.9 - Type 2 diabetes mellitus without complications (ICD-10) Chronic kidney disease ?N18.9 - Chronic kidney disease, unspecified (ICD-10) Anemia in chronic kidney disease (CKD) ?N18.9 - Chronic kidney disease, unspecified (ICD-10) ?D63.1 - Anemia in chronic kidney disease (ICD-10) Hyperparathyroidism, secondary renal ?N25.81 - Secondary hyperparathyroidism of renal origin (ICD-10) Obesity (BMI 30-39.9) ?E66.9 - Obesity, unspecified (ICD-10) Thumb pain ?M79.646 - Pain in unspecified finger(s) (ICD-10) Conjunctivitis ?H10.9 - Unspecified conjunctivitis (ICD-10) Bronchitis ?J40 - Bronchitis, not specified as acute or chronic (ICD-10) Osteoarthritis ?M19.90 - Unspecified osteoarthritis, unspecified site (ICD-10) Hyperlipidemia ?E78.5 - Hyperlipidemia, unspecified (ICD-10) Chronic right shoulder pain ?M25.511 - Pain in right shoulder (ICD-10) ?G89.29 - Other chronic pain (ICD-10) Chronic back pain ?M54.9 - Dorsalgia, unspecified (ICD-10) ?G89.29 - Other chronic pain (ICD-10) Surgical History (Updated 01/21/23 @ 11:46 by Dariela Antunez) History of thumb surgery ?Z98.890 - Other specified postprocedural states (ICD-10) 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) ?Z98.890 - Other specified postprocedural states (ICD-10) History of total right hip replacement (2004) ?Z96.641 - Presence of right artificial hip joint (ICD-10) History of total left hip replacement (2002) ?Z96.642 - Presence of left artificial hip joint (ICD-10) History of shoulder surgery (2008) ?Z98.890 - Other specified postprocedural states (ICD-10) History of pituitary surgery (~1995) ?Z98.890 - Other specified postprocedural states (ICD-10) History of hysterectomy ?Z90.710 - Acquired absence of both cervix and uterus (ICD-10) Family History Mother Breast cancer Maternal Grandmother Diabetes Social History Narrative: Does not drink alcohol Does not use illicit drugs Nonsmoker What is your current living situation?: I presently have a place to live Problems where you live: no known problems Problems where you live details: NONE In the past 12 months, utilities in danger of being shut off: no In past 12 months, lack of transportation kept you from medical appts, meetings, work, or getting things needed for daily living: no In the past 12 mos, have been you worried that your food would run out before you had money to buy more?: never true In the past 12 mos, the food you bought just didn't last and you didn't have money to buy more?: never true Highest level of school completed/degree received: some college, no degree Smoking Status: Former smoker Do you use any of these nicotine containing products: None How often do you have a drink containing alcohol: never AUDIT-C Alcohol total score: 0 Non-prescribed substance use: denies use Caffeine: Yes (1 COFFEE AND 1 TEA/DAILY) How often does anyone, including family, friends and others, physically hurt you : never How often does anyone, including family, friends and others, insult or talk down to you: rarely How often does anyone, including family, friends and others, threaten you with harm: never How often does anyone, including family, friends and others, scream or curse at you: never service: No Exam Narrative: Exam Narrative: General: Well-developed and well-nourished, no acute distress Head: Atraumatic and normocephalic Eyes: Pupils are equal reactive, extraocular motions intact, conjunctiva clear ENT: External nose and ears are normal, posterior pharynx without erythema or exudate, mucous membranes dry and lips are cracked Neck: No midline cervical tenderness, full spontaneous range of motion the neck, trachea midline, no adenopathy Heart: Tachycardic rate and rhythm no murmurs or thrills Lungs: Clear to auscultation bilaterally without wheezes or crackles Abdomen: Soft, nontender, nondistended with active bowel sounds Musculoskeletal: No tenderness, deformity, or edema. Patient able to straight leg raise both extremities without pain. No tenderness deformity of the upper lower extremities. Neurologic: Awake, alert, and oriented x3, no gross focal neurologic deficits, cranial nerves intact as tested Psych: Mood and affect are appropriate Skin: No rashes Const: Vital Signs, click to edit/add: Vital Signs - 24 hr 08/28/23 10:21 08/28/23 10:45 08/28/23 11:30 Temperature 100.1 F H Pulse Rate 114 H 108 H Pulse Rate [Left P ulse Oximeter] 115 H Respiratory Rate 18 14 14 Blood Pressure 129/73 Blood Pressure [Ri ght Upper Arm] 124/68 Pulse Oximetry 91 91 96 Oxygen Delivery Me thod Room Air Oxygen Flow Rate 08/28/23 12:45 08/28/23 13:01 08/28/23 14:01 Temperature 101.2 F H Pulse Rate 105 H 105 H 111 H Pulse Rate [Left P ulse Oximeter] Respiratory Rate 14 Blood Pressure 130/73 Blood Pressure [Ri ght Upper Arm] Pulse Oximetry 94 95 95 Oxygen Delivery Me thod Oxygen Flow Rate 08/28/23 14:31 08/28/23 14:35 08/28/23 15:01 Temperature 101.2 F H Pulse Rate 110 H 118 H Pulse Rate [Left P ulse Oximeter] Respiratory Rate 18 16 Blood Pressure 121/76 140/86 H Blood Pressure [Ri ght Upper Arm] Pulse Oximetry 92 93 Oxygen Delivery Me thod Oxygen Flow Rate 08/28/23 15:31 08/28/23 16:13 08/28/23 16:30 Temperature 101.5 F H 101.5 F H Pulse Rate 121 H 115 H Pulse Rate [Left P ulse Oximeter] Respiratory Rate 14 16 Blood Pressure 138/74 125/66 Blood Pressure [Ri ght Upper Arm] Pulse Oximetry 94 91 Oxygen Delivery Me thod Oxygen Flow Rate 08/28/23 16:45 08/28/23 17:00 08/28/23 17:02 Temperature 99.2 F Pulse Rate 106 H 107 H 110 H Pulse Rate [Left P ulse Oximeter] Respiratory Rate 18 16 Blood Pressure 115/64 Blood Pressure [Ri ght Upper Arm] Pulse Oximetry 92 93 92 Oxygen Delivery Me thod Nasal Cannula Oxygen Flow Rate 2 08/28/23 17:03 08/28/23 17:10 08/28/23 17:32 Temperature 99.2 F Pulse Rate 105 H Pulse Rate [Left P ulse Oximeter] 105 H Respiratory Rate 18 14 Blood Pressure 117/73 Blood Pressure [Ri ght Upper Arm] 124/68 Pulse Oximetry 87 L 98 Oxygen Delivery Me thod Nasal Cannula Nasal Cannula Oxygen Flow Rate 2 2 08/28/23 18:02 08/28/23 18:32 Temperature Pulse Rate 99 97 Pulse Rate [Left P ulse Oximeter] Respiratory Rate 14 18 Blood Pressure 113/71 113/67 Blood Pressure [Ri ght Upper Arm] Pulse Oximetry 98 99 Oxygen Delivery Me thod Nasal Cannula Oxygen Flow Rate 2 Course Course ED Course: Patient seen examined, prior records reviewed. Patient presents today with progressive weakness over the last month or so but much worse the last 24 hours. On initial exam here, tachycardic with no hypotension, temperature slightly elevated 100.1, oxygen saturation was 91% on room air. Patient appears comfortable, lips are cracked mucous membranes are dry consistent with poor oral intake yesterday and diarrhea day prior to that. There may be a component of dehydration and concern for acute kidney injury on top patient's pre-existing chronic kidney disease. IV fluids are ordered and patient can drink fluids as well. Other etiology for weakness including COVID, influenza, pneumonia, urinary tract infection, sepsis considered, labs are ordered for evaluation along with chest x-ray. Disposition based on clinical course but and LEs patient has significant improvement after fluids, likely will need admission and consideration for short-term rehabilitation placement verses higher level of care or increased home services. Reevaluation(s) Time of Reevaluation #1: 12:51 Reevaluation #1: Labs ordered and independently interpreted by me with leukocytosis, mild anemia. Lactate slightly elevated, but in setting of tachycardia and elevated white blood cell count, possible early sepsis but creatinine is also elevated from baseline so this may be related to hypoperfusion from dehydration. COVID, influenza negative. Hepatic panel normal. Glucose elevated to 123 in this patient is diabetic but has had portal an oral intake, no acidosis or anion gap to suggest DKA. Urinalysis is pending. Chest x-ray independently interpreted by me with question of right-sided infiltrate, radiology interpretation with concern for heart failure but clinically this is less likely as patient has significant findings for infection. CT scan of the chest is ordered for further evaluation for pneumonia, urinalysis is still pending. At this point, given primary differential considerations for pneumonia versus urinary tract infection, patient was started on Rocephin and azithromycin and tailor antibiotics based on results of further imaging Time of Reevaluation #2: 13:23 Reevaluation #2: Updated patient and spouse with diagnosis and plan. She has received about 2 mL of her bolus. Spoke to nurse requested 2nd IV due to admission and frankly fairly slow infusion in the IV in the left hand. Patient also has not yet provided a urine sample and straight cath will be performed. Plan for admission. Time of Reevaluation #3: 14:17 Reevaluation #3: Patient has developed little bit more fever now, Tylenol ordered. CT scan of chest independently interpreted by me with question mild diffuse infiltrate particularly on the left. CT scan of the abdomen and pelvis demonstrates a large calculus on the left with perinephric stranding. Patient has not yet provided a urine sample, will straight cath for urine and plan for admission. Additional Reevaluation(s): 2:35 p.m. urinalysis consistent with infection, 25-50 white blood cells with positive nitrites. With UTI in presence of large stone and perinephric stranding, will discuss with urology as may need intervention this admission. Contacted [facility]. 3:40 p.m. no callback from [facility], will contact [facility] for possible transfer. Procalcitonin 22. Repeat lactate 2.2 after 1 L fluids, additional fluids are ordered. Blood pressure remained stable in the 130-140.80s, heart rate still 110-122. 4:04 p.m. spoke with Blaire, PAC with Urology. Patient to be transferred to [facility] for stent placement and admission for further evaluation. Waiting for call back for acceptance. Vital Signs Vital signs: Initial Vital Signs Temperature 100.1 F H 08/28/23 10:21 Temperature Source Temporal Artery Scan 08/28/23 10:21 Pulse Rate 115 H 08/28/23 10:21 Pulse Rhythm Regular 08/28/23 10:21 Pulse Strength 3+ Normal 08/28/23 10:21 Respiratory Rate 18 08/28/23 10:21 Blood Pressure 124/68 08/28/23 10:21 Blood Pressure Mean 86 08/28/23 10:21 Blood Pressure Position Sitting 08/28/23 10:21 Pulse Oximetry 91 08/28/23 10:21 Oxygen Delivery Method Room Air 08/28/23 10:21 Vital Signs Temperature 100.1 F H 08/28/23 10:21 Pulse Rate 115 H 08/28/23 10:21 Respiratory Rate 18 08/28/23 10:21 Blood Pressure 124/68 08/28/23 10:21 Pulse Oximetry 91 08/28/23 10:21 Oxygen Delivery Method Room Air 08/28/23 10:21 Temperature 99.2 F 08/28/23 17:10 Pulse Rate 97 08/28/23 18:32 Respiratory Rate 18 08/28/23 18:32 Blood Pressure 113/67 08/28/23 18:32 Pulse Oximetry 99 08/28/23 18:32 Oxygen Delivery Method Nasal Cannula 08/28/23 18:32 Oxygen Flow Rate 2 08/28/23 18:32 Medications Administered Medications: Discontinued Medications Generic Name Dose Route Start Last Admin Trade Name Freq PRN Reason Stop Dose Admin Acetaminophen 1,000 mg 08/28/23 14:16 08/28/23 14:35 Acetaminophen 500 Mg Tablet PO 08/28/23 14:17 1,000 mg ONCE ONE Administration Sodium Chloride 1,000 mls @ 1,000 mls/hr 08/28/23 10:45 08/28/23 14:39 0.9 % Sodium Chloride 1000 Ml IV 08/28/23 11:44 Infused .Q1H DUSTY Infusion Ceftriaxone Sodium 2 gm/ 100 mls @ 200 mls/hr 08/28/23 13:11 08/28/23 15:02 Sodium Chloride IVPB 08/28/23 13:12 Infused ONCE ONE Infusion Azithromycin 500 mg/ Sodium 255 mls @ 255 mls/hr 08/28/23 13:11 08/28/23 15:02 Chloride IVPB 08/28/23 13:12 Not Given ONCE ONE Sodium Chloride 1,000 mls @ 1,000 mls/hr 08/28/23 14:45 08/28/23 16:54 0.9 % Sodium Chloride 1000 Ml IV 08/28/23 15:44 Infused .Q1H DUSTY Infusion Ondansetron HCl 4 mg 08/28/23 14:46 08/28/23 16:54 Ondansetron 2 Mg/Ml Inj IVP 08/28/23 14:47 Not Given ONCE ONE MDM - Weakness Lab Data Labs: Lab Results 08/28/23 08/28/23 08/28/23 Range/Units 10:30 11:50 12:31 WBC 16.07 H (4.50-11.00) K/uL RBC 3.41 L (4.00-5.20) m/uL Hgb 10.1 L (12.0-16.0) gm/dL Hct 31.7 L (33.0-51.0) % MCV 93 (80-100) fL MCH 30 (26-34) pg MCHC 32 (32-36) gm/dL RDW Coeff of Brittni 14.3 (11.5-15.5) % Plt Count 227 (140-440) K/uL Neut % (Auto) 92.3 H (42.0-72.0) % Lymph % (Auto) 2.8 L (20-44) % [place] % (Auto) 3.7 (0.0-11.0) % Eos % (Auto) 0.0 (0.0-7.0) % Baso % (Auto) 0.1 (0.0-3.0) % Neut # (Auto) 14.80 H (1.7-7.0) K/uL Lymph # (Auto) 0.40 L (0.90-2.90) K/uL [place] # (Auto) 0.60 (0.00-0.90) K/UL Eos # (Auto) 0.00 (0.00-0.50) K/uL Baso # (Auto) 0.00 (0.00-0.30) K/uL Abs Immat Gran (auto) 0.20 (0.00-0.30) K/uL Imm/Tot Granulo (auto) 1.1 % VBG pH 7.427 (7.32-7.43) VBG pCO2 38 L (40-50) mmHG VBG pO2 21.5 L (25-47) mmHG VBG HCO3 25 (21-28) mmol/L Sodium 137 (135-149) mmol/L Potassium 4.6 (3.6-5.1) mmol/L Chloride 101 (96-114) mmol/L Carbon Dioxide 22 (20-32) mmol/L Anion Gap 14 (7-15) mEq/L BUN 50 H (7-30) mg/dL Creatinine 2.5 H (0.5-1.5) mg/dL Estimated Creat Clear 19.88 Estimated GFR 20 ml/min Glucose 323 H (60-115) mg/dL Lactate 2.0 H (0.5-1.9) mmol/L Calcium 9.6 (8.4-10.6) mg/dL Magnesium 2.1 (1.5-2.6) mg/dL Total Bilirubin 0.8 (0.1-1.5) mg/dL Direct Bilirubin 0.3 (0.0-0.5) mg/dL AST 20 (12-35) U/L ALT 15 (4-35) U/L Alkaline Phosphatase 76 (40-150) U/L NT-Pro-B Natriuret Pep 1710 pg/mL Total Protein 8.2 (6.0-8.3) g/dL Albumin 4.2 (3.3-5.0) g/dL Procalcitonin (<0.50) ng/mL Urine Color (Yellow) Urine Appearance (Clear) Urine pH (5.0-8.5) Ur Specific [place] (1.000-1.030) Urine Protein (Negative) Urine Glucose (UA) (Negative) Urine Ketones (Negative) Urine Blood (Negative) Urine Nitrite (Negative) Urine Bilirubin (Negative) Urine Urobilinogen (0.2-1.0) Ur Leukocyte Esterase (Negative) Urine RBC (0-2) Urine WBC (0-5) Ur Squamous Epith Cells (None-Few) Urine Bacteria (None) SARS-CoV-2 (PCR) Negative SARS-CoV-2 (Negative) Influenza Type A (PCR) Negative PCR FLU A (Negative) Influenza Type B (PCR) Negative PCR FLU B (Negative) RSV (PCR) Negative PCR RSV (Negative) Lab Acknowledgement Test Added 08/28/23 08/28/23 Range/Units 13:30 14:50 WBC (4.50-11.00) K/uL RBC (4.00-5.20) m/uL Hgb (12.0-16.0) gm/dL Hct (33.0-51.0) % MCV (80-100) fL MCH (26-34) pg MCHC (32-36) gm/dL RDW Coeff of Brittni (11.5-15.5) % Plt Count (140-440) K/uL Neut % (Auto) (42.0-72.0) % Lymph % (Auto) (20-44) % [place] % (Auto) (0.0-11.0) % Eos % (Auto) (0.0-7.0) % Baso % (Auto) (0.0-3.0) % Neut # (Auto) (1.7-7.0) K/uL Lymph # (Auto) (0.90-2.90) K/uL [place] # (Auto) (0.00-0.90) K/UL Eos # (Auto) (0.00-0.50) K/uL Baso # (Auto) (0.00-0.30) K/uL Abs Immat Gran (auto) (0.00-0.30) K/uL Imm/Tot Granulo (auto) % VBG pH (7.32-7.43) VBG pCO2 (40-50) mmHG VBG pO2 (25-47) mmHG VBG HCO3 (21-28) mmol/L Sodium (135-149) mmol/L Potassium (3.6-5.1) mmol/L Chloride (96-114) mmol/L Carbon Dioxide (20-32) mmol/L Anion Gap (7-15) mEq/L BUN (7-30) mg/dL Creatinine (0.5-1.5) mg/dL Estimated Creat Clear Estimated GFR ml/min Glucose (60-115) mg/dL Lactate 2.2 H (0.5-1.9) mmol/L Calcium (8.4-10.6) mg/dL Magnesium (1.5-2.6) mg/dL Total Bilirubin (0.1-1.5) mg/dL Direct Bilirubin (0.0-0.5) mg/dL AST (12-35) U/L ALT (4-35) U/L Alkaline Phosphatase (40-150) U/L NT-Pro-B Natriuret Pep pg/mL Total Protein (6.0-8.3) g/dL Albumin (3.3-5.0) g/dL Procalcitonin 22.60 H (<0.50) ng/mL Urine Color Yellow (Yellow) Urine Appearance Slightly Cloudy A (Clear) Urine pH 5.5 (5.0-8.5) Ur Specific [place] >= 1.030 (1.000-1.030) Urine Protein 3+ A (Negative) Urine Glucose (UA) Trace A (Negative) Urine Ketones Negative (Negative) Urine Blood 2+ A (Negative) Urine Nitrite Positive A (Negative) Urine Bilirubin Negative (Negative) Urine Urobilinogen 0.2 (0.2-1.0) Ur Leukocyte Esterase Trace A (Negative) Urine RBC 5-10 A (0-2) Urine WBC 25-50 A (0-5) Ur Squamous Epith Cells Moderate A (None-Few) Urine Bacteria Few A (None) SARS-CoV-2 (PCR) (Negative) Influenza Type A (PCR) (Negative) Influenza Type B (PCR) (Negative) RSV (PCR) (Negative) Lab Acknowledgement Critical Care Time Critical Care Time Critical Care Time: Yes (Sepsis, multiple fluid boluses and admission) Attestation: The patient required my highest level preparedness to intervene emergently and I personally spent this critical care time directly and personally managing the patient. This critical care time included: Obtaining a history; Examining the patient; Pulse oximetry; Ordering and reviewing of studies; Arranging urgent treatment with development of a management plan; Evaluation of patients response to treatment; Frequent reassessment discussions with other providers. This critical care time was performed to assess and manage the high probability of imminent life-threatening deterioration that could result in multiorgan failure. It was exclusive of separate billable procedures and treating other patients and teaching time. Total Critical Care Time in Minutes: 180 Discharge Plan Discharge Clinical Impression: Acute pyelonephritis, Sepsis, Staghorn calculus Patient Disposition: [facility] Discharge Location: [facility]
[2023-08-28 11:13] LABS: PCR FLU A Negative PCR FLU A (Negative); PCR FLU B Negative PCR FLU B (Negative); PCR RSV Negative PCR RSV (Negative); SARS PCR* Negative SARS-CoV-2 (Negative)
[2023-08-28 12:00] LABS: HCO3 VBG 25 mmol/L (21-28); PCO2 VBG 38 mmHG (40-50); PO2 VBG 21.5 mmHG (25-47); pH VBG 7.427 (7.32-7.43)
[2023-08-28] MEDS: 0.9 % SODIUM CHLORIDE 1000 ml 1,000 ML IV ×2 (12:00→15:15)
[2023-08-28 12:03] LABS: Basophils Percent Auto 0.1 % (0.0-3.0); Hematocrit 31.7 % (33.0-51.0); Hemoglobin* 10.1 gm/dL (12.0-16.0); Immature Granulocytes Pct Auto 1.1 %; Lymphocytes Percent Auto 2.8 % (20-44); Mean Corpuscular HGB Conc 32 gm/dL (32-36); Mean Corpuscular Hemoglobin 30 pg (26-34); Mean Corpuscular Volume 93 fL (80-100); Monocytes Percent Auto 3.7 % (0.0-11.0); Neutrophils Percent Auto 92.3 % (42.0-72.0); Platelet Count* 227 K/uL (140-440); RDW Coefficient of Variation % 14.3 % (11.5-15.5); Red Blood Count 3.41 m/uL (4.00-5.20); White Blood Count* 16.07 K/uL (4.50-11.00)
[2023-08-28 12:17] LABS: Slide Review Reflex No
[2023-08-28 12:39] LABS: Albumin* 4.2 g/dL (3.3-5.0); Chloride* 101 mmol/L (96-114)
[2023-08-28 12:40] LABS: Potassium* 4.6 mmol/L (3.6-5.1); Sodium* 137 mmol/L (135-149)
[2023-08-28 12:42] LABS: Anion Gap 14 mEq/L (7-15); Aspartate Amino Transferase* 20 U/L (12-35); Bilirubin Direct* 0.3 mg/dL (0.0-0.5); Bilirubin Total* 0.8 mg/dL (0.1-1.5); Carbon Dioxide* 22 mmol/L (20-32); Creatinine* 2.5 mg/dL (0.5-1.5); Est. Creatinine Clearance* 19.88; Estimated Glomerular Filt Rate 20 ml/min; Total Protein* 8.2 g/dL (6.0-8.3)
[2023-08-28 12:43] LABS: Alanine Aminotransferase* 15 U/L (4-35); Alkaline Phosphatase* 76 U/L (40-150); Blood Urea Nitrogen* 50 mg/dL (7-30); Calcium* 9.6 mg/dL (8.4-10.6); Glucose* 323 mg/dL (60-115); Magnesium* 2.1 mg/dL (1.5-2.6)
--- NOTE | 2023-08-28 13:10 | CT_ITS ---
Patient: MEGHAN PERALES Facility:?[facility] Patient ID:?[id number] Site Patient ID:?[id number]. Site :?[id number] Study:?CT-Chest/Abd/Pelvis w/o-08/28/2023 1:55:44 PM Ordering Physician:Mohan Álvarez Final Report: INDICATION: Sepsis. TECHNIQUE: CT chest, abdomen and pelvis acquired without contrast. COMPARISON: None. FINDINGS: CHEST: Cardiovascular structures: Heart size is normal. Coronary artery calcifications. Thoracic aorta and main pulmonary artery are normal in caliber. Mediastinum and aydin: Incidental 1.5 centimeter left thyroid nodule. No mass or adenopathy. Lungs and pleura: Limited evaluation secondary to respiratory motion. Some peribronchial thickening. Scattered atelectasis. No suspicious nodules, infiltrates, or effusions. Chest wall and axilla: No mass or adenopathy. Bones: Right shoulder arthroplasty. No suspicious bone lesions. Unremarkable for age. ABDOMEN AND PELVIS: Liver: Unremarkable. Gallbladder and bile ducts: Biliary sludge/possible tiny stones without acute cholecystitis Pancreas: Fatty atrophy.. Spleen: Unremarkable. Adrenal glands: Tiny indeterminate left adrenal nodule. Kidneys: Large staghorn left calculus. Nonspecific left perinephric inflammatory stranding. Additional bilateral nonobstructing stones. No hydronephrosis. GI tract: Mild colonic diverticulosis without diverticulitis. No bowel obstruction. Normal appendix. Vascular structures: Mild aortoiliac arterial calcifications. Abdominal aorta is normal in caliber. Lymph nodes: Unremarkable. Miscellaneous: Unremarkable. No free air or significant free fluid. Pelvic Organs: Unremarkable. Bones: Bilateral hip arthroplasty. No suspicious bone lesions. Unremarkable for age. IMPRESSION: Limited evaluation secondary to respiratory motion. Some peribronchial thickening which can be seen with bronchitis or aspiration. Otherwise, no definite pneumonia as questioned. Large staghorn left calculus. Nonspecific left perinephric inflammatory stranding. Recommend correlation with urinalysis to exclude urinary tract infection. No hydronephrosis. Incidental 1.5 centimeter thyroid nodule. Recommend outpatient nonemergent thyroid ultrasound for further evaluation. Other chronic findings as above. Please note that all CT scans at this facility use dose modulation, iterative reconstruction, and/or weight-based dosing when appropriate to reduce radiation dose to as low as reasonably achievable. Dictated by Fly Cervantes MD @ 08/28/2023 2:04:15 PM Signed by:?Fly Cervantes MD @08/28/2023 2:04:15 PM (Electronic Signature)
--- NOTE | 2023-08-28 13:30 | ED.NURSE ---
Obtained UA via straight cath. Pt tolerated well. UA sent to lab. Pt noted to be incontinent of urine, brief changed and repositioned for comfort.
[2023-08-28 13:31] LABS: NT Pro B Type NatriureticPept* 1710 pg/mL
[2023-08-28] MEDS: cefTRIAXone 2 GM in 0.9 % SODIUM CHLORIDE Mini-bag 100 ML IVPB (14:00)
[2023-08-28 14:14] LABS: Appearance Urine Slightly Cloudy (Clear); Bilirubin Urine Negative (Negative); Blood Urine 2+ (Negative); Color Urine Yellow (Yellow); Glucose Urine Trace (Negative); Ketones Urine Negative (Negative); Leukocyte Esterase Urine Trace (Negative); Nitrite Urine Positive (Negative); Protein Urine 3+ (Negative); Specific Gravity Urine >= 1.030 (1.000-1.030); Urobilinogen Urine 0.2 (0.2-1.0); pH Urine 5.5 (5.0-8.5)
[2023-08-28 14:28] LABS: Bacteria Urine Few; Squamous Epithelial Cell Urine Moderate (None-Few); WBC Urine 25-50 (0-5)
[2023-08-28] MEDS: ACETAMINOPHEN 500 MG TABLET 1000 MG PO (14:35)
[2023-08-28 14:59] LABS: Lactate* 2.2 mmol/L (0.5-1.9)
--- NOTE | 2023-08-28 16:18 | ED.NURSE ---
Ice packs applied. Bed positioned for comfort. Pt alert and joking with staff.
--- NOTE | 2023-08-28 16:57 | ED.NURSE ---
Received Accepting MD name: Aylin. Per Ave, Transfer center staff, Pt will go straight to OR via ED entrance and should arrive after 183. and Dr. Álvarez updated. Dispatch paged.
--- NOTE | 2023-08-28 17:02 | ED.NURSE ---
Per EMS dispatch, EMS arrival time aprox 1815.
--- NOTE | 2023-08-28 17:29 | ED.NURSE ---
Report given to Reynaldo Leone RN.
--- NOTE | 2023-08-28 17:57 | ED.NURSE ---
Called Reynaldo Leone [employer] and updated with EMS ETA arriving in [facility] ED after 1900 to pepper picker Pt. Will call Reynaldo with any updates on ETA.
--- NOTE | 2023-08-28 18:56 | ED.NURSE ---
Report given to EMS. Pt leaves ED via EMS cot. VSS on 2LPM O2 via NC.
--- NOTE | 2023-08-28 18:59 | ED.NURSE ---
EMS ETA Update given to Reynaldo MARQUIS.
== END 2023-08-28 18:57 | disposition short-term general hospital (02) ==
PROVIDERS: Emergency Provider Family Medicine
DX: A41.51 Sepsis due to Escherichia coli [E. coli] (principal); N10 Acute pyelonephritis; N20.0 Calculus of kidney
CPT/HCPCS: 51701; 36415; 51798; 71046; 71250; 74176; 80048; 80076; 81001; 81003; 82803; 83605; 83735; 83880; 84145; 85025; 87040; 87086; 87186; 87631; 96365; 96375; 99285; 99291; 99292; A9270; J0696; J7030

== ENCOUNTER 2023-08-28 18:48 | Outpatient (CLI) | payer OTHER, SELFPAY | END 2023-08-28 18:49 | disposition home or self-care (01) | LOC: AMB 09-10 16:06 | PROVIDERS: Visit Provider Family Medicine | DX: N10 Acute pyelonephritis (principal); A41.9 Sepsis, unspecified organism; N20.0 Calculus of kidney | CPT/HCPCS: A0425; A0427 ==